=== PATIENT | female | born 1970 | race Caucasian/White ===

== ENCOUNTER 2016-07-17 05:00 | Inpatient (IN) | payer OTHER ==
[~2016-07-17] VITALS: Ht 162.6 cm; Wt 87.5 kg
[2016-07-17] VITALS (10 sets, daily range): BP systolic 92–116; BP diastolic 55–76; PULSE 47–69; RESP 18–22; Ht 162.6 cm; Wt 87.5 kg
[2016-07-17] MEDS ORDERED: FENTAnyl 50 MCG/ML VIAL ONE (07:00)
[2016-07-17] MEDS ORDERED: MIDAZOLAM 1 MG/ML 2 ML INJ ONE (07:00)
[2016-07-17] MEDS ORDERED: NACL 0.9% 3 ML SYG IV SCH ×2 (07:30→09:00)
[2016-07-17] MEDS ORDERED: FAMOTIDINE 20 MG INJ IV SCH (09:00)
[2016-07-17] MEDS ORDERED: LORAZEPAM 2 MG INJ IV PRN (09:00)
[2016-07-17] MEDS ORDERED: hydrALAzine 20 MG INJ IV PRN (09:00)
[2016-07-17] MEDS: SOD CHLORIDE 0.45% 1,000 ML IV SCH ×2 (09:27→17:20)
[2016-07-17] MEDS ORDERED: DEXTROSE 50% 50 ML SYRINGE IV PRN ×2 (09:30)
[2016-07-17] MEDS ORDERED: GLUCOSE GEL 15 GRAM TUBE BUCCAL PRN (09:30)
[2016-07-17] MEDS ORDERED: GLUCAGON 1 MG INJ IM PRN (09:30)
[2016-07-17] MEDS ORDERED: GLUCOSE GEL 15 GRAM TUBE PO PRN ×2 (09:30)
[2016-07-17] MEDS: AZITHROMYCIN 500MG/NS (PMX) 250 ML IVPB SCH (09:52)
--- NOTE | 2016-07-17 10:29 | HP ---
DATE OF ADMISSION: 07/17/2016 TIME OF EVALUATION: 8:15 a.m. REASON FOR ADMISSION: Transferred from another hospital for further evaluation of suspected swallowed foreign body. CONSULTANTS: 1. Dr. Sherie John, Gastroenterology. 2. Dr. Yolis Cope, Cardiology. HISTORY OF PRESENT ILLNESS: This is a 46-year-old obese female with past medical history of type 2 diabetes mellitus, anxiety, depression, asthma, and reported cardiac arrhythmias, for which she is scheduled to have a left heart catheterization on 07/20/2016, who went to the local emergency room because of dysphagia, throat pain and chest fullness and other nonspecific complaints. The patient verbalized that all of these started approximately 2 days ago when she was eating tilapia and she suspected that she swallowed a fish bone and it "got stuck" in her throat. The patient denied any hoarseness. The patient verbalized that she has a history of asthma and she uses inhaled bronchodilators. In other words, she verbalized that this episode has not caused any significant increase in dyspnea. The patient was complaining of nonspecific chest discomfort that goes on and off as per the patient. The patient was also complaining of episodes of palpitations. The patient denied any fevers, chills, nausea, vomiting, abdominal pain, diarrhea or constipation, hematochezia or melena. She denied any dysuria or hematuria. The patient is a poor historian. The patient was unable to provide a list of her home medications. The patient verbalized that she takes "a lot of medications" at home. The patient was initially evaluated at [facility] emergency room where she underwent a chest x-ray that was negative for any acute intrathoracic findings. The patient had a 12-lead EKG done at the ER that shows sinus rhythm with occasional premature ventricular complexes. The patient had a Rapid Strep A screen done which was negative. The patient had no leukocytosis. The patient's initial troponin was less than 0.01. The patient was started on clindamycin for any suspected tonsillitis since the patient is ALLERGIC TO PENICILLIN. The patient was transferred to [facility] because of insurance reasons. PAST MEDICAL HISTORY: Anxiety, depression, type 2 diabetes mellitus, asthma. PAST SURGICAL HISTORY: Denies. HOME MEDICATIONS: A list of the patient's home medications is not available at this time. ALLERGIES: PENICILLIN. PENICILLIN CAUSES ANAPHYLAXIS. SOCIAL HISTORY: The patient lives at home with her family. Denies any use of tobacco, alcohol or illicit drugs. FAMILY HISTORY: Positive for heart disease, diabetes and hypertension. REVIEW OF SYSTEMS: A 12-point review of systems were obtained and review of systems were negative other than what is mentioned in history of present illness. PHYSICAL EXAMINATION: VITAL SIGNS: Temperature 98.2, pulse is 64, respiratory rate 19, blood pressure 103/73, oxygen saturation 95% on low flow O2. GENERAL: This is an obese female lying in bed in no apparent distress. HEENT: Head normocephalic and atraumatic. Eyes: Anicteric sclerae. Conjunctivae clear. ENT: Nasal septum is midline. Oral mucosa is dry. Tongue midline. Uvula midline. Enlarged inflamed tonsils bilaterally. NECK: Short and obese. RESPIRATORY: Bilaterally diminished breath sounds. No adventitious breath sounds. No use of accessory muscles of respiration. CARDIAC: Regular rate and rhythm. Sinus bradycardia. GASTROINTESTINAL: Abdomen soft, nontender and nondistended. Bowel sounds positive in all 4 quadrants. GENITOURINARY: Deferred. EXTREMITIES: No cyanosis, no clubbing, no edema. Peripheral pulses are palpable. NEUROLOGIC: The patient is awake, alert and oriented. Cranial nerves are grossly intact. LABORATORY AND DIAGNOSTIC DATA: From [facility]: 1. A 12-lead EKG is sinus rhythm with occasional premature ventricular complexes. 2. Rapid Strep screen negative. 3. Troponin I less than 0.01. 4. CBC: WBC 11.0, hemoglobin 12.3, hematocrit 36.9, platelet count 328. 5. BMP: Sodium 141, potassium 4.0, chloride 100, carbon dioxide 25, anion gap 13, BUN 16, creatinine 0.6, glucose 107, calcium 9.5. 6. Chest x-ray. Upper limit of normal size cardiac silhouette. Otherwise, unremarkable mediastinal contours. No evidence of focal consolidation, pleural effusion, pulmonary vascular congestion or pneumothorax. No acute osseous abnormality. IMPRESSION: This is a 46-year-old female who went to the local emergency room because of dysphagia and odynophagia secondary to a swallowed fish bone, who will be admitted to [facility] for further evaluation. ASSESSMENT AND PLAN: 1. Suspected swallowed foreign body. A Gastroenterology consult will be obtained. The patient will be provided with adequate pain control. The patient will be maintained on clear liquids if the patient is able to swallow. The patient will be started on IV fluids. 2. Tonsillitis. The patient will be started on appropriate antibiotics. 3. Diabetes mellitus. The patient will be started on sliding scale insulin. A hemoglobin A1c will be obtained to evaluate the blood glucose control over the past few weeks. 4. Cardiac arrhythmias. The patient was noticed to have premature ventricular complexes as well as trigeminy. The patient will be monitored on telemetry floor. Serial troponins will be done to evaluate for any underlying acute coronary syndrome. Cardiology consult will be obtained. 5. Anxiety. The patient will be started on p.r.n. anxiolytics. The patient's home anxiolytics will be resumed once a list of the patient's home medications is available. 6. Asthma. The patient has a history of asthma. There is no evidence of any acute exacerbation. The patient will be started on inhaled bronchodilators. 7. Depression. The patient has history of depression. The patient's antidepressants will be resumed. Plan. The patient will be admitted to inpatient telemetry floor. The patient will be started on DVT prophylaxis and gastrointestinal prophylaxis. The patient will remain a FULL CODE. Activities will be as tolerated. The patient will be started on a clear liquid diet. A gastroenterology consult was already called on this patient. A cardiology consult will be obtained. The rest of the patient's management will be based on the clinical course, the results of diagnostic studies, and inputs from consultants. Based on the patient's clinical presentation, she most probably requires at least 1 midnight's stay for further management and evaluation of her clinical presentation. The case and management of this patient was fully discussed with Dr. Bates. Approximately 60 minutes was spent on the history and physical on this patient. JOSESITO BATES MD, AM/CHRISTIANO Conf#: [id number] DID#: [id number] MTDD
[2016-07-17] MEDS: morphine 2 MG INJ IV PRN ×2 (10:36→10:37)
[2016-07-17 10:56] LABS: INR 0.97; PROTIME 12.9 Sec (12.2-14.2)
[2016-07-17 10:57] LABS: PARTIAL THROMBOPLASTIN TIME 31.6 Sec (25.0-35.0)
[2016-07-17 10:59] LABS: CHOL/HDL RATIO 3.5 RATIO
[2016-07-17] MEDS ORDERED: ALBUTEROL/IPRATROPIUM (NEB) 3 ML AMP HHN PRN (11:00)
[2016-07-17] MEDS ORDERED: VENL75CA89 PO (11:05)
[2016-07-17] MEDS ORDERED: OMEP40CA6 PO (11:05)
[2016-07-17] MEDS ORDERED: DILT120C77 PO (11:05)
[2016-07-17] MEDS ORDERED: METF-730 PO (11:05)
[2016-07-17] MEDS ORDERED: CETI-240 PO (11:05)
[2016-07-17] MEDS ORDERED: CETI5SOL PO (11:05)
[2016-07-17] MEDS ORDERED: GABA300S PO (11:05)
[2016-07-17] MEDS ORDERED: FLUT9.9S NASAL (11:05)
[2016-07-17] MEDS ORDERED: BUSP10TA2 PO (11:05)
[2016-07-17] MEDS ORDERED: IBUP-1542 PO (11:05)
[2016-07-17 11:20] LABS: THYROID STIMULATING HORMONE 1.62 MIU/L (0.465-4.680)
[2016-07-17] MEDS: INSULIN ASPART [NOVOLOG] 3 ML PEN SC SCH ×3 (11:27→21:00)
--- NOTE | 2016-07-17 13:25 | CONS ---
Date/Time of Note Date/Time of Note DATE: 07/17/16 TIME: 13:16 Assessment/Plan Assessment/Plan Additional Assessment/Plan Assessment : Dysphagia Rule out foreign body posterior pharynx or upper esophagus History of fishbone in posterior pharynx or upper esophagus Atypical chest pain Obesity Plan: EGD possible foreign body removal. Consultation Date/Type/Reason Admit Date/Time Jul 17, 2016 at 05:00 Date of Consultation: Jul 17, 2016 Reason for Consultation * Dysphagia Hx of Present Illness 46-year-old female transferred from [facility] where she presented complaining of dysphagia and sore throat. The patient states that she was eating tilapia fish 2 days prior and felt that fishbone got stuck in one her tonsils, since then she has experienced significant difficulty swallowing and sore throat. Evaluation at [facility] included a chest x-ray which was negative and the patient was then transferred to [facility] due to insurance coverage. At the present time the patient is still complaining of difficulty swallowing and discomfort in the area of the pharynx as well as the upper esophagus. The patient denies any previous episodes of dysphagia or other gastrointestinal symptomatology. The patient will be evaluated endoscopically attempting to visualize the pharynx although the reliability of this type of examination for that area is limited, we will however be able to evaluate the esophagus and the remainder of the epigastric intestinal tract in detail. The procedure was explained to the patient and her daughter in detail including risks, benefits and alternatives. The patient is agreeable to proceed and signed informed consent. Constitutional: improved, no complaints Eyes: no complaints ENT: dysphagia, sore throat Respiratory: no complaints Cardiovascular: no complaints Gastrointestinal: no complaints Genitourinary: no complaints Musculoskeletal: no complaints Skin: no complaints Neurologic: no complaints Endocrine: no complaints Lymphatic: no complaints Psychological: nl mood/affect, no complaints Immunologic: no complaints Past Medical History Medical History: hypertension Past Surgical History Past Surgical Hx: no surgical history Family History Significant Family History: no pertinent family hx Social History Smoking Status: Never smoker Drug Use: none Exam/Review of Systems Vital Signs Vitals Vital Signs Date Time Temp Pulse Resp B/P Pulse Ox O2 Delivery O2 Flow Rate FiO2 07/17/16 12:11 50 07/17/16 12:07 98.5 18 100/58 95 07/17/16 06:01 Nasal Cannula 2.0 Exam Constitutional: alert, obese, oriented, well developed Head: atraumatic, normocephalic Eyes: EOMI, PERRL, nl conjunctiva, nl lids, nl sclera ENMT: mucosa pink and moist, nl external ears & nose, nl lips & teeth, nl nasal mucosa & septum, other (Enlarged, erythematous tonsils) Neck: non-tender, supple Respiratory: clear to auscultation, normal air movement Cardiovascular: nl pulses, regular rate and rhythm Gastrointestinal: nl liver, spleen, non-tender, soft Musculoskeletal: nl extremities to inspection Extremities: normal pulses Skin: nl turgor, No rash or lesions Lymph: nl lymph nodes Results Results 24 hrs Laboratory Tests Test 07/17/16 10:12 07/17/16 10:40 Activated Partial Thromboplast Time 31.6 Cholesterol Level 138 Cholesterol/HDL Ratio 3.5 Free Thyroxine 0.84 HDL Cholesterol 39 Hemoglobin A1c 6.9 H INR International Normalized Ratio 0.97 LDL Cholesterol, Calculated 77 Prothrombin Time 12.9 Prothrombin Time Ratio 1.0 Thyroid Stimulating Hormone (TSH) 1.620 Triglycerides Level 112 Vitamin D 1,25-Dihydroxy 19.9 L Bedside Glucose 114 Medications Medications Current Medications Sodium Chloride (1/2 NS) 1,000 ml @ 100 mls/hr Q10H IV Last administered on 09:27; Admin Dose 100 MLS/HR; Start 07/17/16 at 07:20 Ondansetron HCl (Zofran Inj) 4 mg Q6H PRN IV NAUSEA AND/OR VOMITING; Start 04/22 at 07:30 Morphine Sulfate 2 mg 2 mg Q4H PRN IV SEVERE PAIN LEVEL 7-10 Last administered on 07/17/16 10:37; Admin Dose 2 MG; Start 07/17/16 at 07:30 Azithromycin (Zithromax 500mg/ NS (Pmx)) 250 ml @ 250 mls/hr Q24H IVPB Last administered on 07/17/16 09:52; Admin Dose 250 MLS/HR; Start 07/17/16 at 09:00 Acetaminophen (Tylenol Tab) 650 mg Q6H PRN PO PAIN LEVEL 1-3 OR FEVER; Start at 09:00 Zolpidem Tartrate (Ambien) 5 mg QHS PRN PO INSOMNIA; Start 07/17/16 at 09:00 Famotidine (Pepcid Iv) 20 mg Q12 IV Last administered on 07/17/16t 09:51; Admin Dose 20 MG; Start 07/17/16 at 09:00 Hydralazine HCl (Apresoline) 10 mg Q6H PRN IV SBP>160; Start 07/17/16 at 09:00 Miscellaneous Information (* Miscellaneous Pharmacy Order) HYPOGLYCEMIA PROTOCOL w... ONCE ONCE XX ; Start 07/17/16 at 09:00; Stop 07/17/16 at 09:01 Miscellaneous Information (* Miscellaneous Pharmacy Order) Discontinue Glyburide , Glipizide,... ONCE ONCE XX ; Start 07/17/16 at 09:00; Stop 07/17/16 at 09:01 Miscellaneous Information (* Miscellaneous Pharmacy Order) Discontinue all previ... ONCE ONCE XX ; Start 07/17/16 at 09:00; Stop 07/17/16 at 09:01 Diagnostic Test (Pha) (Accucheck) 1 ea 02 XX ; Start 07/18/16 at 02:00 Lorazepam (Ativan) 1 mg Q8H PRN IV Anxiety; Start 07/17/16 at 09:00 Miscellaneous Information 1 ea NOTE XX ; Start 07/17/16 at 09:30 Glucose (Glutose) 15 gm Q15M PRN PO DECREASED GLUCOSE; Start 07/17/16 at 09:30 Glucose (Glutose) 22.5 gm Q15M PRN PO DECREASED GLUCOSE; Start 07/17/16 at 09: 30 Dextrose (D50w Syringe) 25 ml Q15M PRN IV DECREASED GLUCOSE; Start 07/17/16 at 09:30 Dextrose (D50w Syringe) 50 ml Q15M PRN IV DECREASED GLUCOSE; Start 07/17/16 at 09:30 Glucagon (Glucagen) 1 mg Q15M PRN IM DECREASED GLUCOSE; Start 07/17/16 at 09:30 Glucose (Glutose) 15 gm Q15M PRN BUCCAL DECREASED GLUCOSE; Start 07/17/16 at 09 :30 DOUGLAS ESPARZA MD Jul 17, 2016 13:25
[2016-07-17 13:45] LABS: ADD UMIC YES; URINE BILIRUBIN (Dip) NEGATIVE (NEGATIVE); URINE BLOOD (Dip) 1+ (NEGATIVE); URINE COLOR LT. YELLOW (YELLOW); URINE GLUCOSE (Dip) NEGATIVE (NEGATIVE); URINE KETONES (Dip) NEGATIVE (NEGATIVE); URINE LEUKOCYTE ESTERASE (Dip) TRACE (NEGATIVE); URINE NITRITE (Dip) NEGATIVE (NEGATIVE); URINE TOTAL PROTEIN (Dip) NEGATIVE (NEGATIVE); URINE UROBILINOGEN (Dip) 0.2 E.U./dL (0.1-1.0)
--- NOTE | 2016-07-17 13:46 | CONS ---
Date/Time of Note Date/Time of Note DATE: 07/17/16 TIME: 13:40 Assessment/Plan Assessment/Plan Additional Assessment/Plan 1. Suspected foreign body in the throat. Gastroenterology consult will be obtained. The patient will be provided with adequate pain control. The patient will be maintained on clear liquids if the patient is able to swallow. The patient will be started on IV fluids. 2. Possible tonsillitis. The patient will be started on appropriate antibiotics. 3. Diabetes mellitus. 4. PVC - The patient with intermittetn pvcs with bigeminy and trigeminy. Keep magneisum and potassium therapeutic. 6. Asthma. The patient has a history of asthma. There is no evidence of any acute exacerbation. The patient will 5. Bardycardia - no pauses and no symptoms Consultation Date/Type/Reason Admit Date/Time Jul 17, 2016 at 05:00 Hx of Present Illness This is a 46-year-old obese female with past medical history of type 2 diabetes mellitus, anxiety, depression, and reported cardiac arrhythmias, for which she is scheduled to have a left heart catheterization on 07/20/2016, who went to the local emergency room because of dysphagia, throat pain and chest fullness and other nonspecific complaints. The patient verbalized that all of these started approximately 2 days ago when she was eating tilapia and she suspected that she swallowed a fish bone and it got stuck in her throat. The patient denied any hoarseness. The patient verbalized that she has a history of asthma and she uses inhaled bronchodilators. In other words, she verbalized that this episode has not caused any significant increase in dyspnea. The patient was complaining of nonspecific chest discomfort that goes on and off as per the patient. The patient was also complaining of episodes of palpitations. The patient denied any fevers, chills, nausea, vomiting, abdominal pain, diarrhea or constipation, hematochezia or melena. She denied any dysuria, hematuria. The patient is a poor historian. The patient was unable to provide a list of her home medications. The patient verbalized that she takes "a lot of medications" at home. The patient was initially evaluated at [facility] emergency room where she underwent a chest x-ray that was negative for any acute intrathoracic findings. The patient had a 12-lead EKG done at the ER that shows sinus rhythm with occasional premature ventricular complexes. The patient had a Rapid Strep A screen done which was negative. The patient had no leukocytosis. The patient's initial troponin was less than 0.01. The patient was started on clindamycin for any suspected tonsillitis since the patient is ALLERGIC TO PENICILLIN. The patient was transferred to [facility] because of insurance reasons. She was found to be bradycaridic with pvcs though she is aymptomatic and doing well overall at this time Constitutional: improved, no complaints Eyes: no complaints ENT: dysphagia, sore throat Respiratory: no complaints Cardiovascular: no complaints Gastrointestinal: no complaints Genitourinary: no complaints Musculoskeletal: no complaints Skin: no complaints Neurologic: no complaints Endocrine: no complaints Lymphatic: no complaints Psychological: nl mood/affect, no complaints Immunologic: no complaints Past Medical History Medical History: hypertension Past Surgical History Past Surgical Hx: no surgical history Social History Smoking Status: Never smoker Drug Use: none Exam/Review of Systems Vital Signs Vitals Vital Signs Date Time Temp Pulse Resp B/P Pulse Ox O2 Delivery O2 Flow Rate FiO2 07/17/16 12:11 50 07/17/16 12:07 98.5 18 100/58 95 07/17/16 06:01 Nasal Cannula 2.0 Results Results 24 hrs Laboratory Tests Test 07/17/16 10:12 07/17/16 10:40 07/17/16 12:30 Activated Partial Thromboplast Time 31.6 Cholesterol Level 138 Cholesterol/HDL Ratio 3.5 Free Thyroxine 0.84 HDL Cholesterol 39 Hemoglobin A1c 6.9 H INR International Normalized Ratio 0.97 LDL Cholesterol, Calculated 77 Prothrombin Time 12.9 Prothrombin Time Ratio 1.0 Thyroid Stimulating Hormone (TSH) 1.620 Triglycerides Level 112 Vitamin D 1,25-Dihydroxy 19.9 L Bedside Glucose 114 Troponin I < 0.012 Medications Medications Current Medications Sodium Chloride (1/2 NS) 1,000 ml @ 100 mls/hr Q10H IV Last administered on 09:27; Admin Dose 100 MLS/HR; Start 07/17/16 at 07:20 Ondansetron HCl (Zofran Inj) 4 mg Q6H PRN IV NAUSEA AND/OR VOMITING; Start 04/22 at 07:30 Morphine Sulfate 2 mg 2 mg Q4H PRN IV SEVERE PAIN LEVEL 7-10 Last administered on 07/17/16 10:37; Admin Dose 2 MG; Start 07/17/16 at 07:30 Azithromycin (Zithromax 500mg/ NS (Pmx)) 250 ml @ 250 mls/hr Q24H IVPB Last administered on 07/17/16 09:52; Admin Dose 250 MLS/HR; Start 07/17/16 at 09:00 Acetaminophen (Tylenol Tab) 650 mg Q6H PRN PO PAIN LEVEL 1-3 OR FEVER; Start at 09:00 Zolpidem Tartrate (Ambien) 5 mg QHS PRN PO INSOMNIA; Start 07/17/16 at 09:00 Hydralazine HCl (Apresoline) 10 mg Q6H PRN IV SBP>160; Start 07/17/16 at 09:00 Miscellaneous Information (* Miscellaneous Pharmacy Order) HYPOGLYCEMIA PROTOCOL w... ONCE ONCE XX ; Start 07/17/16 at 09:00; Stop 07/17/16 at 09:01 Miscellaneous Information (* Miscellaneous Pharmacy Order) Discontinue Glyburide , Glipizide,... ONCE ONCE XX ; Start 07/17/16 at 09:00; Stop 07/17/16 at 09:01 Miscellaneous Information (* Miscellaneous Pharmacy Order) Discontinue all previ... ONCE ONCE XX ; Start 07/17/16 at 09:00; Stop 07/17/16 at 09:01 Diagnostic Test (Pha) (Accucheck) 1 ea 02 XX ; Start 07/18/16 at 02:00 Lorazepam (Ativan) 1 mg Q8H PRN IV Anxiety; Start 07/17/16 at 09:00 Miscellaneous Information 1 ea NOTE XX ; Start 07/17/16 at 09:30 Glucose (Glutose) 15 gm Q15M PRN PO DECREASED GLUCOSE; Start 07/17/16 at 09:30 Glucose (Glutose) 22.5 gm Q15M PRN PO DECREASED GLUCOSE; Start 07/17/16 at 09: 30 Dextrose (D50w Syringe) 25 ml Q15M PRN IV DECREASED GLUCOSE; Start 07/17/16 at 09:30 Dextrose (D50w Syringe) 50 ml Q15M PRN IV DECREASED GLUCOSE; Start 07/17/16 at 09:30 Glucagon (Glucagen) 1 mg Q15M PRN IM DECREASED GLUCOSE; Start 07/17/16 at 09:30 Glucose (Glutose) 15 gm Q15M PRN BUCCAL DECREASED GLUCOSE; Start 07/17/16 at 09 :30 Pantoprazole (Protonix Iv) 40 mg DAILY@06 IV ; Start 07/18/16 at 06:00 JAKE CANNON MD Jul 17, 2016 13:46
[2016-07-17 14:04] LABS: BACTERIA,URINE FEW; SQUAMOUS EPITHELIAL CELL,UR MODERATE; URINE RBCS 0-2 /HPF (0)
[2016-07-17 14:08] LABS: BARBITURATES Negative (NEGATIVE); BENZODIAZEPINES Negative (NEGATIVE); CANNABINOIDS Negative (NEGATIVE); COCAINE Negative (NEGATIVE); OPIATES Positive (NEGATIVE)
--- NOTE | 2016-07-17 14:43 | RADRPT ---
PROCEDURE: CT soft tissue neck without contrast CLINICAL INDICATION: Evaluate for swallowed foreign body, fish bone TECHNIQUE: Transaxial images were made through the neck on a multi-slice scanner without intraveno us contrast administration. Coronal and sagittal images were subsequently reformatted. One or more of the following dose reduction techniques were used: - Automated exposure control. - Adjustment of the mA and/or kV according to patient size. - Use of iterative reconstruction technique. Radiation dose: CTDIvol = 9.99 mGy; DLP = 275.41 mGy-cm. COMPARISON: None FINDINGS: The incompletely visualized paranasal sinuses and mastoid air cells are well-aerated. The nasal and oropharynx appear unremarkable. The epiglottis is not edematous. The larynx and trachea appear un remarkable. The parapharyngeal spaces and the tongue base appear unremarkable. The tonsils are prom inent with no mass or abscess evident. The parotid, submandibular glands and the thyroid appear unr emarkable. No mediastinal mass is evident. There is a 7 mm in short diameter submental node just t o the right of midline. Bilateral anterior submandibular nodes are evident approximately 9 mm in sh ort diameter each. Subsegmental atelectasis is seen within the posterior lung valdivia bilaterally. There is straightening of the normal lordotic curvature to the cervical spine and there are degenera tive disk and endplate changes at C4-5, C5-6 and C6-C7 associated with mild stenosis to the central canal and C5-6 and C6-C7. No radiopaque foreign body is identified. IMPRESSION: 1. No radiopaque foreign body is identified. 2. Straightening of the normal lordotic curvature to the cervical spine with degenerative disk and endplate changes noted at C4-C5, C5-C6 and C6-C7 with mild stenosis to the central canal at C5-C6 an d C6-C7. 3. Prominent tonsils with no mass or abscess evident. 4. 7 mm in short diameter submental node and 9 mm in short diameter bilateral anterior sub mandibul ar nodes are evident. 5. Otherwise, unremarkable noncontrast enhanced CT scan of the soft tissues of the neck. R Rashaun Physician Date Time Electronically viewed and signed by Rikki Rodney Physician on 07/17/2016 14:43 RH/
--- NOTE | 2016-07-17 14:53 | RADRPT ---
PROCEDURE: CT Chest Without Contrast CLINICAL INDICATION: Evaluate for swallowed foreign body, fish bone. TECHNIQUE: Volumetric acquisition of the thorax was performed without the intravenous administrati on of contrast. Radiation Dose: CTDI = 16.47 mGy; DLP = 624.40 mGy-cm. COMPARISON: None. FINDINGS: Lung valdivia: Subsegmental atelectasis is seen within the posterior medial right upper lobe as well a s the posterior medial right lower lobe. Discoid atelectatic changes seen within the lateral left u pper lobe and within the posterior left lower lobe. No alveolar infiltrate or nodule is identified. The pleural spaces: No effusion or pneumothorax is identified. Lymph nodes: No pathologically enlarged nodes are evident. Cardiovascular structures: The heart is normal in size. The aorta appears normal in caliber. Thyroid: Unremarkable. Superior abdominal structures: The liver appears fatty infiltrated. Soft tissues: No radiopaque foreign body is evident. Osseous structures: Degenerative spine changes are seen diffusely but most extensive within the infe rior cervical region. A 1.2 cm area of sclerosis is seen within the right humeral head which likely represents a bone island. IMPRESSION: 1. No radiopaque foreign body is evident. 2. Subsegmental atelectasis is seen within the posterior medial right upper lobe as well as the pos terior medial right lower lobe with discoid atelectatic change seen in the lateral left upper lobe a nd the posterior left lower lobe. No alveolar infiltrate, effusion, or pneumothorax is evident. 3. Fatty infiltrated liver. 4. Degenerative spine changes most extensive within the inferior cervical region. 5. 1.2 cm area of increased sclerosis seen in the right humeral head probably representing a bone i sland. Physician Soni Date Time Electronically viewed and signed by Physician Soni on 07/17/2016 14:53 /
--- NOTE | 2016-07-17 19:14 | CONS ---
Date/Time of Note Date/Time of Note DATE: 07/17/16 TIME: 18:26 Assessment/Plan Assessment/Plan Chief Complaint/Hosp Course 46 yo obese (BMI >33.+) Female admit with: 1. Acute pharyngitis w/painful bilateral tonsillitis w/reported hx of dysphagia -> Denies odynophagia * Taking PO food without dysphagia today * History of fishbone in posterior pharynx or upper esophagus after eating Talapia * Anxiety playing a role in her perception of dysphagia - she has been "scared to swallow" believing fishbones poking and infecting her tonsils. 2. POD #0 07/17/16: EGD today: NO foreign body, (+)pharyngitis/bilateral tonsillitis/ mild gastritis-distal esophagitis 3. Atypical chest pain => mixed etiology DDx Gastritis/distal esophagitis, (+) Anxiety w/PVCs * CARDS work planned left heart catheterization on 07/20/2016, 4. Cardiac arrhythmia Bradycardia - no pauses and no symptoms w/ premature ventricular contractions -> CARDS on the case 5. COPD Asthma = stable without evidence of exacerbation - no wheezing * CT Chest 07/17/16 with ATX: Subsegmental atelectasis is seen within the posterior medial right upper lobe as well as the posterior medial right lower lobe with discoid atelectatic change seen in the lateral left upper lobe and the posterior left lower lobe. 6. 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 Psych Dx: Anxiety/Depression disorder on Buspar ABX ALLERGIES: PCN CURRENT ABX: Azithromycin s/p Clindamycin ID RECOMMENDATIONS 1. Per notes (-)Strep A per rapid test @ [facility]. 2. Patient believes the fishbones were poking her tonsils and they became infected, she believes this because she saw exudate on her tonsils the same day she ate the Talapia and pulled out fishbones from her mouth. On exam there is no exudate w/mild erythema bilateral tonsils and mild white tongue coating. * It is possible she has viral syndrome etiology to her acute pharyngitis/ bilateral tonsillitis 3. Oral tonsil swab for bacterial C&S obtained 4. Will add Diflucan for concern yeast 5. Continue Azith 6. Await GI Bx r/o H. Pylori 7. Anxiety appears to be active, ruminating about trauma and concern fishbones, afraid to swallow * Thank you, report called to Dr. Merchant who concurs. . Problems: Consultation Date/Type/Reason Admit Date/Time Jul 17, 2016 at 05:00 Date of Consultation: Jul 17, 2016 Type of Consultation: INFECTIOUS DISEASES Reason for Consultation ANTIBIOTIC MANAGEMENT Referring Provider: JOSESITO CASTLE NP Hx of Present Illness 46 yo F admitted to [facility] for acute pharyngitis associated w/odynophagia occurred about 2 days after eating Talapia with apparent retained fishbone in her tonsil/throat which was removed. Strep A rapid test was negative and she was stared on Clindamycin ABX coverage for concern bacterial etiology to acute pharyngitis at [facility], no on Azithromycin IV per ED/Hospitalist. No fevers recorded. She had episodes of chest pain in the setting of trigeminy and bradycardia and is planned for full cardiac work up with left heart cath pending 07/20/16. REASON FOR ADMISSION: Transferred from another hospital due to insurance reasons and for further evaluation of suspected swallowed foreign body. * s/p EGD today with Dr. Will with preliminary handwritten procedure note reporting: "Pharyngitis w/Tonsillitis, NO FB noted. Mild distal esophagitis, mild gastritis, r/o H. Pylori Bx'd. PLAN: PPI w/CT Neck ?ENT Eval. CT CHEST 07/17/16 IMPRESSION: 1. No radiopaque foreign body is evident. 2. Subsegmental atelectasis is seen within the posterior medial right upper lobe as well as the posterior medial right lower lobe with discoid atelectatic change seen in the lateral left upper lobe and the posterior left lower lobe. No alveolar infiltrate, effusion, or pneumothorax is evident. 3. Fatty infiltrated liver. 4. Degenerative spine changes most extensive within the inferior cervical region. 5. 1.2 cm area of increased sclerosis seen in the right humeral head probably representing a bone island. CT SOFT TISSUE NECK 07/17/16 IMPRESSION: 1. No radiopaque foreign body is identified. 2. Straightening of the normal lordotic curvature to the cervical spine with degenerative disk and endplate changes noted at C4-C5, C5-C6 and C6-C7 with mild stenosis to the central canal at C5-C6 and C6-C7. 3. Prominent tonsils with no mass or abscess evident. 4. 7 mm in short diameter submental node and 9 mm in short diameter bilateral anterior sub mandibular nodes are evident. 5. Otherwise, unremarkable noncontrast enhanced CT scan of the soft tissues of the neck. Constitutional: improved, other (s/p EGD -- Awake), No chills, No disoriented, No febrile, No requiring O2 Eyes: no complaints ENT: dysphagia (Improved - no pain with swallowing, just "scared" ), sore throat Respiratory: no complaints, No cough, No pleuritic pain, No shortness of breath, No wheezing Cardiovascular: no complaints Gastrointestinal: no complaints Genitourinary: no complaints Musculoskeletal: no complaints Skin: no complaints Neurologic: no complaints Endocrine: no complaints Lymphatic: no complaints Psychological: anxiety, no complaints Immunologic: no complaints Past Medical History Obesity DMT2 w/peripheral neuropathy HTN Psych Dx: Anxiety/Depression Medical History: hypertension Past Surgical History H/O x2 Family History Significant Family History: no pertinent family hx Social History Smoking Status: Never smoker Drug Use: none Exam/Review of Systems Vital Signs Vitals Vital Signs Date Time Temp Pulse Resp B/P Pulse Ox O2 Delivery O2 Flow Rate FiO2 07/17/16 17:45 2.0 07/17/16 16:15 47 07/17/16 16:10 97.8 18 99/65 100 07/17/16 06:01 Nasal Cannula Exam Constitutional: alert, obese, oriented, well developed Psych: anxiety, other (Rapid speech - "scared to eat fish" (+)RUminations about fishbones poking her tonsils causing infection. ) Head: atraumatic, normocephalic Eyes: nl conjunctiva, nl lids, nl sclera ENMT: mucosa pink and moist, nl external ears & nose, nl lips & teeth, other ( bilateral tonsils appear enlarged with mild erythema, no exudates bilaterally, no petichiae, mild white tongue coating. Tonsils not particularly painful when swab culture obtained) Neck: other (WNL), supple Respiratory: clear to auscultation, normal air movement Cardiovascular: nl pulses, regular rate and rhythm Gastrointestinal: other (Obese ), soft Genitourinary - Female: other (Deferred) Extremities: other (No cyanosis, clubbing, no edema ) Neurological: ASSURANCE SOURCING MANAGER II-XII intact Skin: nl turgor, No ecchymosis, No laceration, No rash or lesions Lymph: enlarged Results Results 24 hrs Laboratory Tests Test 07/17/16 10:12 07/17/16 10:40 07/17/16 12:30 07/17/16 17:23 Activated Partial Thromboplast Time 31.6 Cholesterol Level 138 Cholesterol/HDL Ratio 3.5 Free Thyroxine 0.84 HDL Cholesterol 39 Hemoglobin A1c 6.9 H INR International Normalized Ratio 0.97 LDL Cholesterol, Calculated 77 Prothrombin Time 12.9 Prothrombin Time Ratio 1.0 Thyroid Stimulating Hormone (TSH) 1.620 Triglycerides Level 112 Vitamin D 1,25-Dihydroxy 19.9 L Bedside Glucose 114 77 Troponin I < 0.012 Urine Amphetamines Screen Negative Urine Bacteria FEW Urine Barbiturates Negative Urine Benzodiazepines Screen Negative Urine Bilirubin NEGATIVE Urine Cannabinoids Negative Urine Clarity HAZY Urine Cocaine Screen Negative Urine Color LT. YELLOW Urine Glucose NEGATIVE Urine Hemoglobin 1+ H Urine Ketones NEGATIVE Urine Leukocyte Esterase TRACE H Urine Microscopic RBC 0-2 Urine Microscopic WBC 5-10 Urine Nitrite NEGATIVE Urine Opiates Screen Positive Urine Test NEGATIVE Urine Specific [place] 1.025 Urine Squamous Epithelial Cells MODERATE Urine Total Protein NEGATIVE Urine Urobilinogen 0.2 E.U./dL Urine pH 5.0 Medications Medications Current Medications Sodium Chloride (1/2 NS) 1,000 ml @ 100 mls/hr Q10H IV Last administered on t 09:27; Admin Dose 100 MLS/HR; Start 07/17/16 at 07:20 Ondansetron HCl (Zofran Inj) 4 mg Q6H PRN IV NAUSEA AND/OR VOMITING; Start 04/22 at 07:30 Morphine Sulfate 2 mg 2 mg Q4H PRN IV SEVERE PAIN LEVEL 7-10 Last administered on 07/17/16 10:37; Admin Dose 2 MG; Start 07/17/16 at 07:30 Azithromycin (Zithromax 500mg/ NS (Pmx)) 250 ml @ 250 mls/hr Q24H IVPB Last administered on 07/17/16 09:52; Admin Dose 250 MLS/HR; Start 07/17/16 at 09:00 Acetaminophen (Tylenol Tab) 650 mg Q6H PRN PO PAIN LEVEL 1-3 OR FEVER; Start at 09:00 Zolpidem Tartrate (Ambien) 5 mg QHS PRN PO INSOMNIA; Start 07/17/16 at 09:00 Hydralazine HCl (Apresoline) 10 mg Q6H PRN IV SBP>160; Start 07/17/16 at 09:00 Miscellaneous Information (* Miscellaneous Pharmacy Order) HYPOGLYCEMIA PROTOCOL w... ONCE ONCE XX ; Start 07/17/16 at 09:00; Stop 07/17/16 at 09:01 Miscellaneous Information (* Miscellaneous Pharmacy Order) Discontinue Glyburide , Glipizide,... ONCE ONCE XX ; Start 07/17/16 at 09:00; Stop 07/17/16 at 09:01 Miscellaneous Information (* Miscellaneous Pharmacy Order) Discontinue all previ... ONCE ONCE XX ; Start 07/17/16 at 09:00; Stop 07/17/16 at 09:01 Diagnostic Test (Pha) (Accucheck) 1 ea 02 XX ; Start 07/18/16 at 02:00 Lorazepam (Ativan) 1 mg Q8H PRN IV Anxiety; Start 07/17/16 at 09:00 Miscellaneous Information 1 ea NOTE XX ; Start 07/17/16 at 09:30 Glucose (Glutose) 15 gm Q15M PRN PO DECREASED GLUCOSE; Start 07/17/16 at 09:30 Glucose (Glutose) 22.5 gm Q15M PRN PO DECREASED GLUCOSE; Start 07/17/16 at 09: 30 Dextrose (D50w Syringe) 25 ml Q15M PRN IV DECREASED GLUCOSE; Start 07/17/16 at 09:30 Dextrose (D50w Syringe) 50 ml Q15M PRN IV DECREASED GLUCOSE; Start 07/17/16 at 09:30 Glucagon (Glucagen) 1 mg Q15M PRN IM DECREASED GLUCOSE; Start 07/17/16 at 09:30 Glucose (Glutose) 15 gm Q15M PRN BUCCAL DECREASED GLUCOSE; Start 07/17/16 at 09 :30 Pantoprazole (Protonix Iv) 40 mg DAILY@06 IV ; Start 07/18/16 at 06:00 Buspirone HCl (Buspar) 10 mg DAILY PO ; Start 07/18/16 at 09:00 Diltiazem HCl (Cardizem Cd) 120 mg DAILY PO ; Start 07/18/16 at 09:00 Gabapentin (Neurontin) 300 mg TID PO ; Start 07/17/16 at 21:00 Cholecalciferol (Vitamin D) 1,000 unit DAILY PO ; Start 07/18/16 at 09:00 LLUVIA FREITAS NP Jul 17, 2016 18:38
[2016-07-17] MEDS: FLUCONAZOLE 100 MG TAB PO SCH (21:17)
[2016-07-17] MEDS: GABAPENTIN 300 MG CAP PO SCH (21:17)
[2016-07-18] VITALS (17 sets, daily range): BP systolic 101–117; BP diastolic 54–75; PULSE 44–111; RESP 18–19
[2016-07-18] MEDS: SOD CHLORIDE 0.45% 1,000 ML IV SCH ×3 (01:39→23:20)
[2016-07-18] MEDS: ONDANSETRON 4 MG INJ IV PRN (01:39)
[2016-07-18] MEDS: ACCUCHECK XX SCH (01:47)
[2016-07-18] MEDS: PANTOPRAZOLE 40 MG INJ IV SCH (06:14)
[2016-07-18] MEDS: INSULIN ASPART [NOVOLOG] 3 ML PEN SC SCH ×4 (08:00→20:49)
[2016-07-18 08:28] LABS: BASOPHILS % 0.4 % (0.0-2.0); EOSINOPHILS # 0.2 10^3/ul (0.0-0.5); EOSINOPHILS % 2.1 % (0.0-7.0); HEMATOCRIT 35.5 % (37.0-47.0); HEMOGLOBIN 12.1 g/dl (12.0-16.0); LYMPHOCYTES # 2.9 10^3/ul (0.8-2.9); LYMPHOCYTES % 29.1 % (15.0-51.0); MEAN CORPUSCULAR HEMOGLOBIN 29.9 pg (29.0-33.0); MEAN CORPUSCULAR HGB CONC 33.9 g/dl (32.0-37.0); MEAN CORPUSCULAR VOLUME 88.2 fl (82.0-101.0); MEAN PLATELET VOLUME 7.8 fl (7.4-10.4); MONOCYTE # 0.6 10^3/ul (0.3-0.9); MONOCYTES % 5.9 % (0.0-11.0); NEUTROPHIL # 6.2 10^3/ul (1.6-7.5); NEUTROPHILS % 62.5 % (39.0-77.0); PLATELET COUNT 301 10^3/UL (140-440); RED BLOOD COUNT 4.03 10^6/ul (4.20-5.40); RED CELL DISTRIBUTION WIDTH 14.2 % (11.5-14.5)
[2016-07-18] MEDS: AZITHROMYCIN 500MG/NS (PMX) 250 ML IVPB SCH (08:29)
[2016-07-18] MEDS: BUSPIRONE 10 MG TAB PO SCH (08:29)
[2016-07-18] MEDS: CHOLECALCIFEROL 1,000 UNIT TAB PO SCH (08:29)
[2016-07-18] MEDS: FLUCONAZOLE 100 MG TAB PO SCH (08:31)
[2016-07-18] MEDS: GABAPENTIN 300 MG CAP PO SCH ×3 (08:31→20:49)
[2016-07-18 08:32] LABS: ALBUMIN 3.7 g/dl (3.3-4.9); POTASSIUM 3.9 mmol/L (3.5-5.1)
[2016-07-18 08:33] LABS: CONDITION 1
--- NOTE | 2016-07-18 08:34 | GILP ---
DATE OF PROCEDURE: PROCEDURE: Esophagogastroduodenoscopy with biopsies. BRIEF HISTORY AND INDICATIONS: The patient is being evaluated for possible foreign body in the uppe r esophagus and pharynx. PREMEDICATION: Monitored anesthesia care by anesthesiologist. BRIEF HISTORY AND INDICATIONS: The patient is a 46-year-old female who, 2 days ago, was eating madonna mauricio fish and felt a fish bone get stuck in her throat. Since then she has had increasing difficulty swallowing and discomfort upon swallowing both in the pharynx as well as the upper esophageal area. She was evaluated at [facility] where a chest x-ray was obtained which showed no abnormalities and then was transferred to [facility] for insurance reasons. At this point, we will evaluate endoscopically to rule out the presence of any foreign body. PREMEDICATION: Monitored anesthesia care by anesthesiologist. TECHNIQUE: After informed consent, with the patient/relatives understanding the procedure, its indic ations, potential risks and complications, including but not limited to: allergic reaction, bleeding , perforation or infection, and after all pertinent questions were answered to the patient's satisfa ction, the patient/relatives signed witnessed informed consent. Following this, premedication was administered slowly IV push under careful cardiovascular and respi ratory monitoring with pulse oximetry, automatic blood pressure and mushroom cutter. Once the sedative effect was achieved the patient was place in the left lateral decubitus, the panen doscope was introduced and advanced under visual control. Careful examination of the upper gastrointestinal tract, both on insertion as well as withdrawal of the instrument disclosed the following findings: INSTRUMENT USED: Olympus panendoscope FINDINGS: The posterior pharynx shows significant erythema, edema and the tonsils are very prominen t and swollen. With the limitations of this type of examination, I see no foreign body in the area of the tonsils or posterior pharynx. Vocal cords are normal. The esophagus shows mild erythema and edema of the mucosa at the EG junction. No foreign bodies or areas of obstruction are noted throug hout in the length of the esophagus. STOMACH: Upon entrance to the stomach, air was insufflated, the gastric faustin distended normally. There is mild erythema and edema of the mucosa of the body and antrum. Biopsies were obtained to ru le out H. pylori infection. PYLORUS: The pylorus appears patent and within normal limits, with no evidence of gastric outlet obs truction. DUODENUM: The duodenal mucosa was carefully examined in the duodenal bulb as well as the second port ion of the duodenum and appears unremarkable with no evidence of duodenitis, ulcer or neoplasm. The instrument was then withdrawn, the patient tolerated the procedure well and was transfer out of the endoscopy suite awake, and in good condition to continue recovery under observation. IMPRESSION: 1. Pharyngitis and tonsillitis. No foreign body identified (limited examination). 2. Distal esophagitis, mild. 3. Gastritis, mild, rule out Helicobacter pylori infection, biopsies obtained. PLAN: The patient will be treated with PPIs. A CT of the neck is advisable to look for any foreign bodies and ENT evaluation would be advisable as well. Dictated By: DOUGLAS ESPARZA MS/CHRISTIANO Conf#: [id number] DID#: [id number] CC: GARY KRAUSE MD; DOUGLAS ESPARZA; ;*EndCC*
[2016-07-18 08:35] LABS: ALBUMIN/GLOBULIN RATIO 1.19; BILIRUBIN,INDIRECT 0.5 mg/dl (0-1.1); BILIRUBIN,TOTAL 0.5 mg/dl (0.2-1.3); CREATININE 0.65 mg/dl (0.44-1.00); PHOSPHORUS 3.8 mg/dl (2.5-4.9); TOTAL PROTEIN 6.8 g/dl (6.1-8.1)
[2016-07-18 08:36] LABS: MAGNESIUM 1.8 mg/dl (1.7-2.5)
[2016-07-18] MEDS ORDERED: DILTIAZEM (CD) 120 MG CAP PO SCH (09:00)
[2016-07-18] MEDS: morphine 2 MG INJ IV PRN (11:04)
[2016-07-18] MEDS ORDERED: MAGNESIUM SULFATE 2 GM/50 ML 50 ML IVPB ONE (13:00)
--- NOTE | 2016-07-18 14:07 | PN ---
Date/Time of Note Date/Time of Note DATE: 07/18/16 TIME: 14:06 Assessment/Plan VTE Prophylaxis VTE Prophylaxis Intervention: SCD's Lines/Catheters IV Catheter Type (from [facility]): Peripheral IV Urinary Cath still in place: No Assessment/Plan Chief Complaint/Hosp Course 1. Tonsillitis and pharyngitis. Continue antibiotics as per infectious diseases. 2. Mild gastritis and mild esophagitis. Continue proton pump inhibitors. Gastroenterology following. 3. Type 2 diabetes mellitus. Continue sliding scale insulin. Hemoglobin A1c 6.9. Blood sugars fairly well controlled. We will hold the metformin specifically since the patient is scheduled to get a left heart catheterization on 07/20/2016. 4. Cardiac arrhythmias. The patient is having frequent PVCs and bradycardia. The patient's Cardizem will be put on hold. Cardiology following. Continue telemetry monitoring. 5. Anxiety. The patient will be maintained on p.r.n. anxiolytics. The patient already on scheduled BuSpar. 6. Asthma. There is no evidence of any acute exacerbation. The patient will be continued on inhaled bronchodilators. 7. Depression. The patient will be continued on SNRIs. 8. Fluids, electrolytes, and nutrition. Carbohydrate controlled diet. 9. DVT prophylaxis. Bilateral sequential compression devices. 10. Gastrointestinal prophylaxis. Proton pump inhibitors. 11. Plan. Continue antimicrobials as per infectious diseases. Continue telemetry monitoring. Await pathology from gastric biopsy. Case discussed with Dr. Kwan. Problems: Subjective 24 Hr Interval Summary Free Text/Dictation Dysphagia improved. Tolerating regular consistency diet. However, the patient was complaining of dizziness. The patient had an unsteady gait. Exam/Review of Systems Vital Signs Vitals Vital Signs Date Time Temp Pulse Resp B/P Pulse Ox O2 Delivery O2 Flow Rate FiO2 07/18/16 12:24 49 07/18/16 07:58 98.6 18 109/54 99 07/18/16 06:12 2.0 07/18/16 04:00 Nasal Cannula Intake and Output 07/17/16 07/17/16 07/18/16 15:00 23:00 07:00 Intake Total 250 ml 720 ml 1700 ml Output Total 400 ml 600 ml Balance -150 ml 720 ml 1100 ml Exam GENERAL: This is an obese female lying in bed in no apparent distress. HEENT: Head normocephalic and atraumatic. Eyes: Anicteric sclerae. Conjunctivae clear. ENT: Nasal septum is midline. Oral mucosa is dry. Tongue midline. Uvula midline. Enlarged inflamed tonsils bilaterally. NECK: Short and obese. RESPIRATORY: Bilaterally diminished breath sounds. No adventitious breath sounds. No use of accessory muscles of respiration. CARDIAC: Regular rate and rhythm. Sinus bradycardia. GASTROINTESTINAL: Abdomen soft, nontender and nondistended. Bowel sounds positive in all 4 quadrants. GENITOURINARY: Deferred. EXTREMITIES: No cyanosis, no clubbing, no edema. Peripheral pulses are palpable. NEUROLOGIC: The patient is awake, alert and oriented. Cranial nerves are grossly intact. Results Result Diagram: 07/18/16 0735 07/18/16 0735 Results 24 hrs Laboratory Tests Test 07/17/16 17:23 07/17/16 18:30 07/17/16 21:21 07/18/16 01:00 Bedside Glucose 77 147 Troponin I < 0.012 < 0.012 Test 07/18/16 07:35 07/18/16 07:48 07/18/16 11:31 Alanine Aminotransferase (ALT/SGPT) 41 Albumin 3.7 Albumin/Globulin Ratio 1.19 Alkaline Phosphatase 66 Anion Gap 15 Aspartate Amino Transf (AST/SGOT) 27 Basophils # 0.0 Basophils % 0.4 Blood Urea Nitrogen 9 Calcium Level 9.0 Carbon Dioxide Level 25 Chloride Level 105 Creatinine 0.65 Direct Bilirubin 0.00 Eosinophils # 0.2 Eosinophils % 2.1 Globulin 3.10 Glucose Level 110 Hematocrit 35.5 L Hemoglobin 12.1 Indirect Bilirubin 0.5 Lymphocytes # 2.9 Lymphocytes % 29.1 Magnesium Level 1.8 Mean Corpuscular Hemoglobin 29.9 Mean Corpuscular Hemoglobin Concent 33.9 Mean Corpuscular Volume 88.2 Mean Platelet Volume 7.8 Monocytes # 0.6 Monocytes % 5.9 Neutrophils # 6.2 Neutrophils % 62.5 Nucleated Red Blood Cells # 0.0 Nucleated Red Blood Cells % 0.0 Phosphorus Level 3.8 Platelet Count 301 Potassium Level 3.9 Red Blood Count 4.03 L Red Cell Distribution Width 14.2 Sodium Level 141 Total Bilirubin 0.5 Total Protein 6.8 White Blood Count 10.0 Bedside Glucose 114 104 Medications Medications Current Medications Sodium Chloride (1/2 NS) 1,000 ml @ 100 mls/hr Q10H IV Last administered on 13:01; Admin Dose 100 MLS/HR; Start 07/17/16 at 07:20 Ondansetron HCl (Zofran Inj) 4 mg Q6H PRN IV NAUSEA AND/OR VOMITING Last administered on 07/18/16 01:39; Admin Dose 4 MG; Start 07/17/16 at 07:30 Morphine Sulfate 2 mg 2 mg Q4H PRN IV SEVERE PAIN LEVEL 7-10 Last administered on 07/18/16 11:04; Admin Dose 2 MG; Start 07/17/16 at 07:30 Azithromycin (Zithromax 500mg/ NS (Pmx)) 250 ml @ 250 mls/hr Q24H IVPB Last administered on 07/18/16 08:29; Admin Dose 250 MLS/HR; Start 07/17/16 at 09:00 Acetaminophen (Tylenol Tab) 650 mg Q6H PRN PO PAIN LEVEL 1-3 OR FEVER; Start at 09:00 Zolpidem Tartrate (Ambien) 5 mg QHS PRN PO INSOMNIA; Start 07/17/16 at 09:00 Hydralazine HCl (Apresoline) 10 mg Q6H PRN IV SBP>160; Start 07/17/16 at 09:00 Diagnostic Test (Pha) (Accucheck) 1 ea 02 XX ; Start 07/18/16 at 02:00 Lorazepam (Ativan) 1 mg Q8H PRN IV Anxiety; Start 07/17/16 at 09:00 Miscellaneous Information 1 ea NOTE XX ; Start 07/17/16 at 09:30 Glucose (Glutose) 15 gm Q15M PRN PO DECREASED GLUCOSE; Start 07/17/16 at 09:30 Glucose (Glutose) 22.5 gm Q15M PRN PO DECREASED GLUCOSE; Start 07/17/16 at 09: 30 Dextrose (D50w Syringe) 25 ml Q15M PRN IV DECREASED GLUCOSE; Start 07/17/16 at 09:30 Dextrose (D50w Syringe) 50 ml Q15M PRN IV DECREASED GLUCOSE; Start 07/17/16 at 09:30 Glucagon (Glucagen) 1 mg Q15M PRN IM DECREASED GLUCOSE; Start 07/17/16 at 09:30 Glucose (Glutose) 15 gm Q15M PRN BUCCAL DECREASED GLUCOSE; Start 07/17/16 at 09 :30 Pantoprazole (Protonix Iv) 40 mg DAILY@06 IV Last administered on 07/18/16 06: 14; Admin Dose 40 MG; Start 07/18/16 at 06:00 Buspirone HCl (Buspar) 10 mg DAILY PO Last administered on 07/18/16 08:29; Admin Dose 10 MG; Start 07/18/16 at 09:00 Gabapentin (Neurontin) 300 mg TID PO Last administered on 07/18/16 12:24; Admin Dose 300 MG; Start 07/17/16 at 21:00 Cholecalciferol (Vitamin D) 1,000 unit DAILY PO Last administered on 07/18/16 08:29; Admin Dose 1,000 UNIT; Start 07/18/16 at 09:00 Fluconazole 100 mg 100 mg DAILY PO Last administered on 07/18/16 08:31; Admin Dose 100 MG; Start 07/17/16 at 21:00 Magnesium Sulfate (Magnesium Sulfate 2 Gm/50 ml) 50 ml @ 25 mls/hr ONCE ONCE IVPB Last administered on 07/18/16 12:58; Admin Dose 25 MLS/HR; Start at 13:00; Stop 07/18/16 at 14:59 JOSESITO CASTLE NP Jul 18, 2016 14:07
--- NOTE | 2016-07-18 14:17 | CONS ---
Date/Time of Note Date/Time of Note DATE: 07/18/16 TIME: 14:05 Assessment/Plan Assessment/Plan Chief Complaint/Hosp Course ID PROGRESS NOTE 24H INTERVAL SUMMARY POD#1 => s/p EGD with NO FISHBONES present * Pt is requesting Morphine pain meds -- atypical cp due to frequent PVCs, she is reluctant to get OOB->Chair w/RN assist prefers to lay in bed and complain, says sitting up makes her dizzy. * I explained the results of the EGD "No Fishbones" and she finds this hard to believe "Why would I have bilateral tonsilitis w/pus on tonsils the same day I ate fish with bones?" * No fevers/chills, taking POs denies dysphagia/odynophagia * Anxiety over recent events her concern of swallowing fishbones is waning s/p EGD 07/17/16 NO FOREIGN BODIES Machelle: 07/17/16-529 Rcvd: 07/17/16-2023 THROAT Sp Descrip: Microbiology THROAT CULTURE Preliminary Organism 1 NORMAL RESPIRATORY PERRI QUANTITY 1+ No beta streptococci isolated after 24 hours ID ASSESSMENT 46 yo obese (BMI >33.+) Female w/ PMHx Psych:Depression/Anxiety admit with: 1. Acute pharyngitis w/painful bilateral tonsillitis w/reported hx of dysphagia related to ANXIETY about swallowing fishbones-> Denies odynophagia * CT neck soft tissue: Prominent bilateral tonsils, no abscess, bilat sub mandibular adenopathy * History of fishbone in posterior pharynx or upper esophagus after eating [place]apia * Anxiety playing a role in her perception of dysphagia - she has been "scared to swallow" believing fishbones poking and infecting her tonsils. 2. POD #1 07/17/16: EGD today: NO foreign body, (+)pharyngitis/bilateral tonsillitis/ mild gastritis-distal esophagitis 3. GERD=> Gastritis + Distal Esophagitis => biopsy pending, r/o H. Pylor 4. Atypical chest pain => mixed etiology DDx Gastritis/distal esophagitis, (+) Anxiety w/PVCs * CARDS work planned left heart catheterization on 07/20/2016, 5. Cardiac arrhythmia Bradycardia - no pauses and no symptoms w/ premature ventricular contractions -> CARDS on the case 6. COPD Asthma = stable without evidence of exacerbation -> no wheezing * CT Chest 07/17/16 with ATX: Subsegmental atelectasis is seen within the posterior medial right upper lobe as well as the posterior medial right lower lobe with discoid atelectatic change seen in the lateral left upper lobe and the posterior left lower lobe. 6. 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 Psych Dx: Anxiety/Depression disorder on Buspar ABX ALLERGIES: PCN CURRENT ABX: Azithromycin + Diflucan s/p Clindamycin ID RECOMMENDATIONS 1. Suspect Opioid Drug Seeking behavior -- Psych issues w/anxiety out of proportion to the pharyngitis/bilateral tonsillitis. * Consider DC all opioids -- she is refusing to get OOB-> Chair with RN assist, multiple small complaints, c/o PVCs * ?Delusions of fishbone retention? She is convinced fishbones caused bilateral tonsillitis. 2. Possible viral etiology to her acute bilateral tonisillits/pharyngitis, she reportedly saw "pus" on her tonsils the day after eating [place]apia . and thought fishbones poked both her tonsils creating infection; it is possible she simply had viral infection at the same time she was eating Talapia ? * Anxiety appears to be active, ruminating about trauma and concern fishbones, afraid to swallow = now eating puddings * No evidence of bacterial infection=>Per notes (-)Strep A per rapid test @ [facility], repeat throat culture (-). * 07/17/16 THROAT CULTURE Preliminary Organism 1 NORMAL RESPIRATORY PERRI QUANTITY 1+ No beta streptococci isolated after 24 hours 2. On exam there is no exudate w/mild erythema bilateral tonsils and mild white tongue coating * = NO COMPLAIN OF PAIN DURING SWAB OF BILATERAL TONSILS = she denied tonsillar pain with swab pressure. * Possible oral candidiasis w/distal esophagitis 3. F/U final result throat/tonsil swab pending (-)preliminary day 1 = normal oral perri 4. DC Azith tomorrow after 3rd dose, continue oral Diflucan for concern oral/ esophageal candidiasis 6. Await GI Bx r/o H. Pylori . Problems: Consultation Date/Type/Reason Admit Date/Time Jul 17, 2016 at 05:00 Initial Consult Date 07/17/16 Type of Consultation: INFECTIOUS DISEASES Referring Provider: JOSESITO CASTLE AERIAL INSTALLER Exam/Review of Systems Vital Signs Vitals Vital Signs Date Time Temp Pulse Resp B/P Pulse Ox O2 Delivery O2 Flow Rate FiO2 07/18/16 12:24 49 07/18/16 07:58 98.6 18 109/54 99 07/18/16 06:12 2.0 07/18/16 04:00 Nasal Cannula Intake and Output 07/17/16 07/17/16 07/18/16 15:00 23:00 07:00 Intake Total 250 ml 720 ml 1700 ml Output Total 400 ml 600 ml Balance -150 ml 720 ml 1100 ml Results Result Diagram: 07/18/16 0735 07/18/16 0735 Results 24 hrs Laboratory Tests Test 07/17/16 17:23 07/17/16 18:30 07/17/16 21:21 07/18/16 01:00 Bedside Glucose 77 147 Troponin I < 0.012 < 0.012 Test 07/18/16 07:35 07/18/16 07:48 07/18/16 11:31 Alanine Aminotransferase (ALT/SGPT) 41 Albumin 3.7 Albumin/Globulin Ratio 1.19 Alkaline Phosphatase 66 Anion Gap 15 Aspartate Amino Transf (AST/SGOT) 27 Basophils # 0.0 Basophils % 0.4 Blood Urea Nitrogen 9 Calcium Level 9.0 Carbon Dioxide Level 25 Chloride Level 105 Creatinine 0.65 Direct Bilirubin 0.00 Eosinophils # 0.2 Eosinophils % 2.1 Globulin 3.10 Glucose Level 110 Hematocrit 35.5 L Hemoglobin 12.1 Indirect Bilirubin 0.5 Lymphocytes # 2.9 Lymphocytes % 29.1 Magnesium Level 1.8 Mean Corpuscular Hemoglobin 29.9 Mean Corpuscular Hemoglobin Concent 33.9 Mean Corpuscular Volume 88.2 Mean Platelet Volume 7.8 Monocytes # 0.6 Monocytes % 5.9 Neutrophils # 6.2 Neutrophils % 62.5 Nucleated Red Blood Cells # 0.0 Nucleated Red Blood Cells % 0.0 Phosphorus Level 3.8 Platelet Count 301 Potassium Level 3.9 Red Blood Count 4.03 L Red Cell Distribution Width 14.2 Sodium Level 141 Total Bilirubin 0.5 Total Protein 6.8 White Blood Count 10.0 Bedside Glucose 114 104 Medications Medications Current Medications Sodium Chloride (1/2 NS) 1,000 ml @ 100 mls/hr Q10H IV Last administered on 13:01; Admin Dose 100 MLS/HR; Start 07/17/16 at 07:20 Ondansetron HCl (Zofran Inj) 4 mg Q6H PRN IV NAUSEA AND/OR VOMITING Last administered on 07/18/16 01:39; Admin Dose 4 MG; Start 07/17/16 at 07:30 Morphine Sulfate 2 mg 2 mg Q4H PRN IV SEVERE PAIN LEVEL 7-10 Last administered on 07/18/16 11:04; Admin Dose 2 MG; Start 07/17/16 at 07:30 Azithromycin (Zithromax 500mg/ NS (Pmx)) 250 ml @ 250 mls/hr Q24H IVPB Last administered on 07/18/16 08:29; Admin Dose 250 MLS/HR; Start 07/17/16 at 09:00 Acetaminophen (Tylenol Tab) 650 mg Q6H PRN PO PAIN LEVEL 1-3 OR FEVER; Start at 09:00 Zolpidem Tartrate (Ambien) 5 mg QHS PRN PO INSOMNIA; Start 07/17/16 at 09:00 Hydralazine HCl (Apresoline) 10 mg Q6H PRN IV SBP>160; Start 07/17/16 at 09:00 Diagnostic Test (Pha) (Accucheck) 1 ea 02 XX ; Start 07/18/16 at 02:00 Lorazepam (Ativan) 1 mg Q8H PRN IV Anxiety; Start 07/17/16 at 09:00 Miscellaneous Information 1 ea NOTE XX ; Start 07/17/16 at 09:30 Glucose (Glutose) 15 gm Q15M PRN PO DECREASED GLUCOSE; Start 07/17/16 at 09:30 Glucose (Glutose) 22.5 gm Q15M PRN PO DECREASED GLUCOSE; Start 07/17/16 at 09: 30 Dextrose (D50w Syringe) 25 ml Q15M PRN IV DECREASED GLUCOSE; Start 07/17/16 at 09:30 Dextrose (D50w Syringe) 50 ml Q15M PRN IV DECREASED GLUCOSE; Start 07/17/16 at 09:30 Glucagon (Glucagen) 1 mg Q15M PRN IM DECREASED GLUCOSE; Start 07/17/16 at 09:30 Glucose (Glutose) 15 gm Q15M PRN BUCCAL DECREASED GLUCOSE; Start 07/17/16 at 09 :30 Pantoprazole (Protonix Iv) 40 mg DAILY@06 IV Last administered on 07/18/16 06: 14; Admin Dose 40 MG; Start 07/18/16 at 06:00 Buspirone HCl (Buspar) 10 mg DAILY PO Last administered on 07/18/16 08:29; Admin Dose 10 MG; Start 07/18/16 at 09:00 Gabapentin (Neurontin) 300 mg TID PO Last administered on 07/18/16 12:24; Admin Dose 300 MG; Start 07/17/16 at 21:00 Cholecalciferol (Vitamin D) 1,000 unit DAILY PO Last administered on 07/18/16 08:29; Admin Dose 1,000 UNIT; Start 07/18/16 at 09:00 Fluconazole 100 mg 100 mg DAILY PO Last administered on 07/18/16 08:31; Admin Dose 100 MG; Start 07/17/16 at 21:00 Magnesium Sulfate (Magnesium Sulfate 2 Gm/50 ml) 50 ml @ 25 mls/hr ONCE ONCE IVPB Last administered on 07/18/16 12:58; Admin Dose 25 MLS/HR; Start at 13:00; Stop 07/18/16 at 14:59 LLUVIA FREITAS NP Jul 18, 2016 14:17
[2016-07-18] MEDS: ACETAMINOPHEN 325 MG TAB PO PRN (14:56)
--- NOTE | 2016-07-18 15:09 | CONS ---
DATE OF ADMISSION: 07/17/2016 DATE OF CONSULTATION: 07/18/2016 TYPE OF CONSULTATION: Cardiac. REASON FOR CONSULTATION: Bradycardia with PVCs. SUBJECTIVE: The patient is anxious and crying. Denies any chest pain at the current time. She rodas s report dizziness while lying in bed. The patient has been evaluated for foreign body and found to have tonsillitis. PHYSICAL EXAMINATION: VITAL SIGNS: Temperature 98.6, pulse 49 with frequent PVCs, blood pressure 109/54, oxygen saturatio n 99%. LUNGS: Clear. CARDIAC: Regular rate and rhythm. ABDOMEN: Soft, nontender. EXTREMITIES: Reveal no edema. GENERAL: She is on 1. BuSpar. 2. Protonix. 3. Neurontin. 4. Fluconazole. 5. Insulin. 6. Ambien. ASSESSMENT: Bradycardia with PVCs, no specific treatment. Symptoms appear to be more related to he r tonsillitis. At this time, I would not recommend acute cardiac intervention. Dictated By: PILY COOPER/CHRISTIANO Conf#: [id number] DID#: [id number]
--- NOTE | 2016-07-18 19:30 | CONS ---
DATE OF ADMISSION: 07/17/2016 DATE OF CONSULTATION: 07/17/2016 ADDENDUM TO INFECTIOUS DISEASE CONSULTATION Kelly Avitia was seen in consultation by the infectious disease team. We noted acute pharyngitis with painful bilateral tonsils with dysphagia. The patient believes that she had a fish bone in her mout h that irritated her tonsils after she ate tilapia. On exam there was no exudate. There was mild erythema on bilateral tonsils and mild white tongue co ating. Oral tonsil swab for bacterial C and S was obtained. The patient is currently on fluconazol e and azithromycin. We will continue her on this regimen. A CT scan of the chest without contrast was done which did not show any infiltrates, so we will continue her on azithromycin, fluconazole an d close followup. Dictated By: GABRIEL MADDOX MD, JD/CHRISTIANO Conf#: [id number] DID#: [id number]
[2016-07-19] VITALS (11 sets, daily range): BP systolic 96–120; BP diastolic 53–61; PULSE 51–65; RESP 16–20
[2016-07-19] MEDS: ACCUCHECK XX SCH (02:00)
[2016-07-19] MEDS: SOD CHLORIDE 0.45% 1,000 ML IV SCH ×2 (04:38→18:17)
[2016-07-19] MEDS: PANTOPRAZOLE 40 MG INJ IV SCH (05:40)
[2016-07-19] MEDS: ONDANSETRON 4 MG INJ IV PRN (06:21)
[2016-07-19 07:24] LABS: BASOPHILS % 0.3 % (0.0-2.0); EOSINOPHILS # 0.2 10^3/ul (0.0-0.5); EOSINOPHILS % 1.9 % (0.0-7.0); HEMATOCRIT 35.4 % (37.0-47.0); LYMPHOCYTES # 2.8 10^3/ul (0.8-2.9); LYMPHOCYTES % 28.9 % (15.0-51.0); MEAN CORPUSCULAR HEMOGLOBIN 29.8 pg (29.0-33.0); MEAN CORPUSCULAR HGB CONC 33.8 g/dl (32.0-37.0); MEAN CORPUSCULAR VOLUME 88.3 fl (82.0-101.0); MEAN PLATELET VOLUME 7.9 fl (7.4-10.4); MONOCYTE # 0.6 10^3/ul (0.3-0.9); MONOCYTES % 5.9 % (0.0-11.0); NEUTROPHIL # 6.1 10^3/ul (1.6-7.5); PLATELET COUNT 300 10^3/UL (140-440); RED BLOOD COUNT 4.01 10^6/ul (4.20-5.40); UNCORRECTED WBC 9.6 10^3/ul (4.8-10.8); WHITE BLOOD COUNT 9.6 10^3/ul (4.8-10.8)
[2016-07-19 07:26] LABS: POTASSIUM 3.9 mmol/L (3.5-5.1)
[2016-07-19 07:28] LABS: CREATININE 0.66 mg/dl (0.44-1.00)
[2016-07-19 07:30] LABS: CALCIUM 8.6 mg/dl (8.4-10.2); CONDITION 1; PHOSPHORUS 3.8 mg/dl (2.5-4.9)
[2016-07-19] MEDS: INSULIN ASPART [NOVOLOG] 3 ML PEN SC SCH ×4 (07:55→21:00)
[2016-07-19] MEDS: AZITHROMYCIN 500MG/NS (PMX) 250 ML IVPB SCH (09:23)
[2016-07-19] MEDS: GABAPENTIN 300 MG CAP PO SCH ×3 (09:23→21:13)
[2016-07-19] MEDS: VENLAFAXINE (XR) 75 MG CAP PO SCH (09:23)
[2016-07-19] MEDS: CHOLECALCIFEROL 1,000 UNIT TAB PO SCH (09:23)
[2016-07-19] MEDS: BUSPIRONE 10 MG TAB PO SCH (09:24)
[2016-07-19] MEDS: FLUCONAZOLE 100 MG TAB PO SCH (09:29)
--- NOTE | 2016-07-19 12:40 | CONS ---
Date/Time of Note Date/Time of Note DATE: 07/19/16 TIME: 12:37 Assessment/Plan Assessment/Plan Additional Assessment/Plan Bradycardia PVCs Tonsillitis Anxiety -Patient with intermittent bradycardia, lowest seen on telemetry has been 42 with frequent PVCs. It is unclear if her symptoms are related to her bradycardia and PVC episodes. Patient tells me she is under the care of her bobbin stripper Dr. Tompkins and she is planned for left heart catheterization tomorrow. I did contact him and he will be taking over her care. Would continue telemetry monitoring. Supplement potassium to maintain about 4.0 and magnesium above 2.0. Consultation Date/Type/Reason Admit Date/Time Jul 17, 2016 at 05:00 Initial Consult Date 07/17/16 Type of Consultation: cv Referring Provider: JOSESITO CASTLE NP 24 HR Interval Summary Free Text/Dictation Patient complains of intermittent dizziness and anxiety. This is been coming and going for a number of months. Exam/Review of Systems Vital Signs Vitals Vital Signs Date Time Temp Pulse Resp B/P Pulse Ox O2 Delivery O2 Flow Rate FiO2 07/19/16 11:45 98.2 60 16 104/60 97 07/18/16 20:40 Nasal Cannula 2.0 Intake and Output 07/18/16 07/18/16 07/19/16 15:00 23:00 07:00 Intake Total 900 ml 1040 ml 1000 ml Output Total 1400 ml Balance 900 ml -360 ml 1000 ml Exam Anxious Constitutional: alert, oriented Head: normocephalic Neck: supple Respiratory: clear to auscultation, normal air movement Cardiovascular: other (S1-S2 heard), regular rate and rhythm Gastrointestinal: bowel sounds, non-tender, other (No guarding), soft Extremities: other (No edema) Results Result Diagram: 07/19/16 0615 07/19/16 0615 Results 24 hrs Laboratory Tests Test 07/18/16 17:08 07/18/16 20:19 07/19/16 06:15 07/19/16 07:46 Bedside Glucose 96 117 107 Anion Gap 16 Basophils # 0.0 Basophils % 0.3 Blood Urea Nitrogen 10 Calcium Level 8.6 Carbon Dioxide Level 23 Chloride Level 105 Creatinine 0.66 Eosinophils # 0.2 Eosinophils % 1.9 Glucose Level 103 Hematocrit 35.4 L Hemoglobin 12.0 Lymphocytes # 2.8 Lymphocytes % 28.9 Magnesium Level 2.0 Mean Corpuscular Hemoglobin 29.8 Mean Corpuscular Hemoglobin Concent 33.8 Mean Corpuscular Volume 88.3 Mean Platelet Volume 7.9 Monocytes # 0.6 Monocytes % 5.9 Neutrophils # 6.1 Neutrophils % 63.0 Nucleated Red Blood Cells # 0.0 Nucleated Red Blood Cells % 0.0 Phosphorus Level 3.8 Platelet Count 300 Potassium Level 3.9 Red Blood Count 4.01 L Red Cell Distribution Width 14.0 Sodium Level 140 White Blood Count 9.6 Test 07/19/16 11:43 Bedside Glucose 102 Medications Medications Current Medications Sodium Chloride (1/2 NS) 1,000 ml @ 100 mls/hr Q10H IV Last administered on 04:38; Admin Dose 100 MLS/HR; Start 07/17/16 at 07:20 Ondansetron HCl (Zofran Inj) 4 mg Q6H PRN IV NAUSEA AND/OR VOMITING Last administered on 07/19/16 06:21; Admin Dose 4 MG; Start 07/17/16 at 07:30 Morphine Sulfate 2 mg 2 mg Q4H PRN IV SEVERE PAIN LEVEL 7-10 Last administered on 07/18/16 11:04; Admin Dose 2 MG; Start 07/17/16 at 07:30 Azithromycin (Zithromax 500mg/ NS (Pmx)) 250 ml @ 250 mls/hr Q24H IVPB Last administered on 07/19/16 09:23; Admin Dose 250 MLS/HR; Start 07/17/16 at 09:00 Acetaminophen (Tylenol Tab) 650 mg Q6H PRN PO PAIN LEVEL 1-3 OR FEVER Last administered on 07/18/16 14:56; Admin Dose 650 MG; Start 07/17/16 at 09:00 Zolpidem Tartrate (Ambien) 5 mg QHS PRN PO INSOMNIA; Start 07/17/16 at 09:00 Hydralazine HCl (Apresoline) 10 mg Q6H PRN IV SBP>160; Start 07/17/16 at 09:00 Diagnostic Test (Pha) (Accucheck) 1 ea 02 XX ; Start 07/18/16 at 02:00 Lorazepam (Ativan) 1 mg Q8H PRN IV Anxiety; Start 07/17/16 at 09:00 Miscellaneous Information 1 ea NOTE XX ; Start 07/17/16 at 09:30 Glucose (Glutose) 15 gm Q15M PRN PO DECREASED GLUCOSE; Start 07/17/16 at 09:30 Glucose (Glutose) 22.5 gm Q15M PRN PO DECREASED GLUCOSE; Start 07/17/16 at 09: 30 Dextrose (D50w Syringe) 25 ml Q15M PRN IV DECREASED GLUCOSE; Start 07/17/16 at 09:30 Dextrose (D50w Syringe) 50 ml Q15M PRN IV DECREASED GLUCOSE; Start 07/17/16 at 09:30 Glucagon (Glucagen) 1 mg Q15M PRN IM DECREASED GLUCOSE; Start 07/17/16 at 09:30 Glucose (Glutose) 15 gm Q15M PRN BUCCAL DECREASED GLUCOSE; Start 07/17/16 at 09 :30 Pantoprazole (Protonix Iv) 40 mg DAILY@06 IV Last administered on 07/19/16 05: 40; Admin Dose 40 MG; Start 07/18/16 at 06:00 Buspirone HCl (Buspar) 10 mg DAILY PO Last administered on 07/19/16 09:24; Admin Dose 10 MG; Start 07/18/16 at 09:00 Gabapentin (Neurontin) 300 mg TID PO Last administered on 07/19/16 09:23; Admin Dose 300 MG; Start 07/17/16 at 21:00 Cholecalciferol (Vitamin D) 1,000 unit DAILY PO Last administered on 07/19/16 09:23; Admin Dose 1,000 UNIT; Start 07/18/16 at 09:00 Venlafaxine HCl (Effexor Xr) 75 mg DAILY PO Last administered on 07/19/16 09: 23; Admin Dose 75 MG; Start 07/19/16 at 09:00 Chase Cain DO Jul 19, 2016 12:40
[2016-07-19] MEDS ORDERED: POTASSIUM CHLORIDE (SR) 10 MEQ TAB PO ONE (13:00)
--- NOTE | 2016-07-19 14:32 | PN ---
DATE: INFECTIOUS DISEASE PROGRESS NOTE SUBJECTIVE: Patient is alert, feels anxious. She is in no distress, no fevers. WBC 9.6, no shift, no bands. BUN 10, creatinine 0.66. MICROBIOLOGY: Cultures so far have been negative. ANTIMICROBIALS: The patient is on 1. Fluconazole. 2. Zithromax. PHYSICAL EXAMINATION: GENERAL: Well-nourished, well-developed, middle-aged woman who is alert, in no distress. HEENT: Head atraumatic, normocephalic. Sclerae anicteric. Buccal mucosa pink. NECK: Supple, trachea midline. CHEST: Rise symmetrical. Breath sounds clear. HEART: S1, S2. ABDOMEN: Soft. Bowel tones present. EXTREMITIES: No cyanosis. ASSESSMENT: 1. Pharyngitis and tonsillitis, no evidence of foreign body per EGD. 2. Mild distal esophagitis and gastritis. 3. Diabetes. 4. History of cardiac arrhythmia. 5. Depression. PLAN: The patient remains stable. Continue present care, antibiotics. Await for biopsy results. Jus Rodriguez. Dictated By: TIFFANIE RIVAS AUDIT CLERK for GABRIEL MADDOX MD NI/NTS Conf#: [id number] DID#: [id number]
--- NOTE | 2016-07-19 15:48 | PN ---
Date/Time of Note Date/Time of Note DATE: 07/19/16 TIME: 15:39 Assessment/Plan VTE Prophylaxis VTE Prophylaxis Intervention: SCD's Lines/Catheters IV Catheter Type (from Nrs): Peripheral IV Urinary Cath still in place: No Assessment/Plan Chief Complaint/Hosp Course Assessment and plan 1. Tonsillitis and pharyngitis. Continue antibiotic per ID. Appears to be improving at 2. Type 2 diabetes. A1c of 6.9. Continue on insulin regimen. 3. Cardiac arrhythmia. Patient seen with PVC and bradycardia. Tentative plan for angiogram per senior sustainability consultant. We'll follow-up 4. History of anxiety. Continue anxiolytics as needed 5. History of asthma. Stable at present. We'll provide with bronchodilators as needed 6. Major depression. Continue antidepressant medication DVT prophylaxis: SCDs GERD prophylaxis: PPI and Disposition and plan: Continue on antibiotics. s/p GI intervention . Plan for heart cath in a.m. We'll follow-up Discussed but of care with Dr. Mariee Problems: Subjective 24 Hr Interval Summary Free Text/Dictation Still with some reported dizziness. Exam/Review of Systems Vital Signs Vitals Vital Signs Date Time Temp Pulse Resp B/P Pulse Ox O2 Delivery O2 Flow Rate FiO2 07/19/16 15:02 63 07/19/16 13:43 2.0 07/19/16 11:45 98.2 16 104/60 97 07/19/16 09:00 Nasal Cannula Intake and Output 07/18/16 07/18/16 07/19/16 14:59 22:59 06:59 Intake Total 900 ml 1040 ml 1000 ml Output Total 1400 ml Balance 900 ml -360 ml 1000 ml Exam General: Reports some dizziness Eyes: pupils equal round, Anicteric sclera Neck: Supple nontender, no JVD Cardiac: S1, S2 auscultated, regular rhythm and rate Pulmonary: Minimally diminished lung bases GI: Abdomen soft nontender nondistended, bowel sounds active Extremities: No edema bilateral lower extremities Skin: Clean dry and intact Neurologic: Alert to person place and time and situation Results Result Diagram: 07/19/16 0615 07/19/16 0615 Results 24 hrs Laboratory Tests Test 07/18/16 17:08 07/18/16 20:19 07/19/16 06:15 07/19/16 07:46 Bedside Glucose 96 117 107 Anion Gap 16 Basophils # 0.0 Basophils % 0.3 Blood Urea Nitrogen 10 Calcium Level 8.6 Carbon Dioxide Level 23 Chloride Level 105 Creatinine 0.66 Eosinophils # 0.2 Eosinophils % 1.9 Glucose Level 103 Hematocrit 35.4 L Hemoglobin 12.0 Lymphocytes # 2.8 Lymphocytes % 28.9 Magnesium Level 2.0 Mean Corpuscular Hemoglobin 29.8 Mean Corpuscular Hemoglobin Concent 33.8 Mean Corpuscular Volume 88.3 Mean Platelet Volume 7.9 Monocytes # 0.6 Monocytes % 5.9 Neutrophils # 6.1 Neutrophils % 63.0 Nucleated Red Blood Cells # 0.0 Nucleated Red Blood Cells % 0.0 Phosphorus Level 3.8 Platelet Count 300 Potassium Level 3.9 Red Blood Count 4.01 L Red Cell Distribution Width 14.0 Sodium Level 140 White Blood Count 9.6 Test 07/19/16 11:43 Bedside Glucose 102 Medications Medications Current Medications Sodium Chloride (1/2 NS) 1,000 ml @ 100 mls/hr Q10H IV Last administered on 04:38; Admin Dose 100 MLS/HR; Start 07/17/16 at 07:20 Ondansetron HCl (Zofran Inj) 4 mg Q6H PRN IV NAUSEA AND/OR VOMITING Last administered on 07/19/16 06:21; Admin Dose 4 MG; Start 07/17/16 at 07:30 Morphine Sulfate 2 mg 2 mg Q4H PRN IV SEVERE PAIN LEVEL 7-10 Last administered on 07/18/16 11:04; Admin Dose 2 MG; Start 07/17/16 at 07:30 Azithromycin (Zithromax 500mg/ NS (Pmx)) 250 ml @ 250 mls/hr Q24H IVPB Last administered on 07/19/16 09:23; Admin Dose 250 MLS/HR; Start 07/17/16 at 09:00 Acetaminophen (Tylenol Tab) 650 mg Q6H PRN PO PAIN LEVEL 1-3 OR FEVER Last administered on 07/18/16 14:56; Admin Dose 650 MG; Start 07/17/16 at 09:00 Zolpidem Tartrate (Ambien) 5 mg QHS PRN PO INSOMNIA; Start 07/17/16 at 09:00 Hydralazine HCl (Apresoline) 10 mg Q6H PRN IV SBP>160; Start 07/17/16 at 09:00 Diagnostic Test (Pha) (Accucheck) 1 ea 02 XX ; Start 07/18/16 at 02:00 Lorazepam (Ativan) 1 mg Q8H PRN IV Anxiety; Start 07/17/16 at 09:00 Miscellaneous Information 1 ea NOTE XX ; Start 07/17/16 at 09:30 Glucose (Glutose) 15 gm Q15M PRN PO DECREASED GLUCOSE; Start 07/17/16 at 09:30 Glucose (Glutose) 22.5 gm Q15M PRN PO DECREASED GLUCOSE; Start 07/17/16 at 09: 30 Dextrose (D50w Syringe) 25 ml Q15M PRN IV DECREASED GLUCOSE; Start 07/17/16 at 09:30 Dextrose (D50w Syringe) 50 ml Q15M PRN IV DECREASED GLUCOSE; Start 07/17/16 at 09:30 Glucagon (Glucagen) 1 mg Q15M PRN IM DECREASED GLUCOSE; Start 07/17/16 at 09:30 Glucose (Glutose) 15 gm Q15M PRN BUCCAL DECREASED GLUCOSE; Start 07/17/16 at 09 :30 Pantoprazole (Protonix Iv) 40 mg DAILY@06 IV Last administered on 07/19/16 05: 40; Admin Dose 40 MG; Start 07/18/16 at 06:00 Buspirone HCl (Buspar) 10 mg DAILY PO Last administered on 07/19/16 09:24; Admin Dose 10 MG; Start 07/18/16 at 09:00 Gabapentin (Neurontin) 300 mg TID PO Last administered on 07/19/16 13:35; Admin Dose 300 MG; Start 07/17/16 at 21:00 Cholecalciferol (Vitamin D) 1,000 unit DAILY PO Last administered on 07/19/16 09:23; Admin Dose 1,000 UNIT; Start 07/18/16 at 09:00 Venlafaxine HCl (Effexor Xr) 75 mg DAILY PO Last administered on 07/19/16 09: 23; Admin Dose 75 MG; Start 07/19/16 at 09:00 MARITZA MURGUIA Jul 19, 2016 15:48
[2016-07-19] MEDS: ACETAMINOPHEN 325 MG TAB PO PRN (18:17)
[2016-07-19] MEDS: MECLIZINE 25 MG TAB PO PRN (21:13)
[2016-07-19] MEDS: ZOLPIDEM 5 MG TAB PO PRN (21:13)
[2016-07-20] VITALS (25 sets, daily range): BP systolic 106–119; BP diastolic 54–88; PULSE 53–82; RESP 13–22
[2016-07-20] MEDS: ACCUCHECK XX SCH (02:00)
[2016-07-20] MEDS: SOD CHLORIDE 0.45% 1,000 ML IV SCH (03:38)
[2016-07-20] MEDS: PANTOPRAZOLE 40 MG INJ IV SCH (05:48)
[2016-07-20 08:00] LABS: BASOPHILS % 0.4 % (0.0-2.0); EOSINOPHILS # 0.2 10^3/ul (0.0-0.5); EOSINOPHILS % 1.8 % (0.0-7.0); HEMOGLOBIN 12.7 g/dl (12.0-16.0); LYMPHOCYTES # 3.1 10^3/ul (0.8-2.9); LYMPHOCYTES % 30.6 % (15.0-51.0); MEAN CORPUSCULAR HEMOGLOBIN 30.1 pg (29.0-33.0); MEAN CORPUSCULAR HGB CONC 34.2 g/dl (32.0-37.0); MEAN CORPUSCULAR VOLUME 87.8 fl (82.0-101.0); MEAN PLATELET VOLUME 7.8 fl (7.4-10.4); MONOCYTE # 0.5 10^3/ul (0.3-0.9); MONOCYTES % 5.2 % (0.0-11.0); NEUTROPHIL # 6.2 10^3/ul (1.6-7.5); PLATELET COUNT 309 10^3/UL (140-440); RED BLOOD COUNT 4.21 10^6/ul (4.20-5.40); RED CELL DISTRIBUTION WIDTH 13.8 % (11.5-14.5); UNCORRECTED WBC 10.1 10^3/ul (4.8-10.8); WHITE BLOOD COUNT 10.1 10^3/ul (4.8-10.8)
[2016-07-20] MEDS: INSULIN ASPART [NOVOLOG] 3 ML PEN SC SCH ×4 (08:00→21:00)
[2016-07-20 08:06] LABS: CONDITION 1
[2016-07-20 08:07] LABS: POTASSIUM 4.1 mmol/L (3.5-5.1)
[2016-07-20 08:10] LABS: CREATININE 0.66 mg/dl (0.44-1.00)
[2016-07-20 08:11] LABS: CALCIUM 8.7 mg/dl (8.4-10.2)
[2016-07-20] MEDS: BUSPIRONE 10 MG TAB PO SCH (08:47)
[2016-07-20] MEDS: VENLAFAXINE (XR) 75 MG CAP PO SCH (08:48)
[2016-07-20] MEDS: GABAPENTIN 300 MG CAP PO SCH ×3 (08:49→21:03)
[2016-07-20] MEDS: CHOLECALCIFEROL 1,000 UNIT TAB PO SCH (08:49)
[2016-07-20] MEDS: AZITHROMYCIN 500MG/NS (PMX) 250 ML IVPB SCH (09:07)
--- NOTE | 2016-07-20 12:50 | CONS ---
Date/Time of Note Date/Time of Note DATE: 07/20/16 TIME: 12:49 Assessment/Plan Assessment/Plan Chief Complaint/Hosp Course SUBJECTIVE: Patient is alert, feels good. She is in no distress, no fevers. ANTIMICROBIALS: Zithromax. PHYSICAL EXAMINATION: GENERAL: Well-nourished, well-developed, middle-aged woman who is alert, in no distress. HEENT: Head atraumatic, normocephalic. Sclerae anicteric. Buccal mucosa pink. NECK: Supple, trachea midline. CHEST: Rise symmetrical. Breath sounds clear. HEART: S1, S2. ABDOMEN: Soft. Bowel tones present. EXTREMITIES: No cyanosis. ASSESSMENT: 1. Pharyngitis and tonsillitis, no evidence of foreign body per EGD. 2. Mild distal esophagitis and gastritis. 3. Diabetes. 4. History of cardiac arrhythmia. 5. Depression. 6. Oral thrush PLAN: The patient remains stable. Continue present care, antibiotics. Await for biopsy results. Nystatin paxton GREENE pt Problems: Consultation Date/Type/Reason Admit Date/Time Jul 17, 2016 at 05:00 Initial Consult Date 07/17/16 Type of Consultation: ID Referring Provider: JOSESITO CASTLE GLASS CLEANER Exam/Review of Systems Vital Signs Vitals Vital Signs Date Time Temp Pulse Resp B/P Pulse Ox O2 Delivery O2 Flow Rate FiO2 07/20/16 12:29 57 07/20/16 11:55 98.0 18 115/62 97 07/20/16 07:50 Nasal Cannula 2.0 Intake and Output 07/19/16 07/19/16 07/20/16 15:00 23:00 07:00 Intake Total 360 ml 1920 ml 1150 ml Output Total 850 ml Balance 360 ml 1070 ml 1150 ml Results Result Diagram: 07/20/16 0700 07/20/16 0700 Results 24 hrs Laboratory Tests Test 07/19/16 17:33 07/19/16 20:27 07/20/16 07:00 07/20/16 07:33 Bedside Glucose 95 113 91 Anion Gap 16 Basophils # 0.0 Basophils % 0.4 Blood Urea Nitrogen 10 Calcium Level 8.7 Carbon Dioxide Level 24 Chloride Level 103 Creatinine 0.66 Eosinophils # 0.2 Eosinophils % 1.8 Glucose Level 101 Hematocrit 37.0 Hemoglobin 12.7 Lymphocytes # 3.1 H Lymphocytes % 30.6 Mean Corpuscular Hemoglobin 30.1 Mean Corpuscular Hemoglobin Concent 34.2 Mean Corpuscular Volume 87.8 Mean Platelet Volume 7.8 Monocytes # 0.5 Monocytes % 5.2 Neutrophils # 6.2 Neutrophils % 62.0 Nucleated Red Blood Cells # 0.0 Nucleated Red Blood Cells % 0.0 Platelet Count 309 Potassium Level 4.1 Red Blood Count 4.21 Red Cell Distribution Width 13.8 Sodium Level 139 White Blood Count 10.1 Test 07/20/16 12:16 Bedside Glucose 100 Medications Medications Current Medications Sodium Chloride (1/2 NS) 1,000 ml @ 100 mls/hr Q10H IV Last administered on 03:38; Admin Dose 100 MLS/HR; Start 07/17/16 at 07:20 Ondansetron HCl (Zofran Inj) 4 mg Q6H PRN IV NAUSEA AND/OR VOMITING Last administered on 07/19/16 06:21; Admin Dose 4 MG; Start 07/17/16 at 07:30 Morphine Sulfate 2 mg 2 mg Q4H PRN IV SEVERE PAIN LEVEL 7-10 Last administered on 07/18/16 11:04; Admin Dose 2 MG; Start 07/17/16 at 07:30 Azithromycin (Zithromax 500mg/ NS (Pmx)) 250 ml @ 250 mls/hr Q24H IVPB Last administered on 07/20/16 09:07; Admin Dose 250 MLS/HR; Start 07/17/16 at 09:00 Acetaminophen (Tylenol Tab) 650 mg Q6H PRN PO PAIN LEVEL 1-3 OR FEVER Last administered on 07/19/16 18:17; Admin Dose 650 MG; Start 07/17/16 at 09:00 Zolpidem Tartrate (Ambien) 5 mg QHS PRN PO INSOMNIA Last administered on 21:13; Admin Dose 5 MG; Start 07/17/16 at 09:00 Hydralazine HCl (Apresoline) 10 mg Q6H PRN IV SBP>160; Start 07/17/16 at 09:00 Diagnostic Test (Pha) (Accucheck) 1 ea 02 XX ; Start 07/18/16 at 02:00 Lorazepam (Ativan) 1 mg Q8H PRN IV Anxiety; Start 07/17/16 at 09:00 Miscellaneous Information 1 ea NOTE XX ; Start 07/17/16 at 09:30 Glucose (Glutose) 15 gm Q15M PRN PO DECREASED GLUCOSE; Start 07/17/16 at 09:30 Glucose (Glutose) 22.5 gm Q15M PRN PO DECREASED GLUCOSE; Start 07/17/16 at 09: 30 Dextrose (D50w Syringe) 25 ml Q15M PRN IV DECREASED GLUCOSE; Start 07/17/16 at 09:30 Dextrose (D50w Syringe) 50 ml Q15M PRN IV DECREASED GLUCOSE; Start 07/17/16 at 09:30 Glucagon (Glucagen) 1 mg Q15M PRN IM DECREASED GLUCOSE; Start 07/17/16 at 09:30 Glucose (Glutose) 15 gm Q15M PRN BUCCAL DECREASED GLUCOSE; Start 07/17/16 at 09 :30 Pantoprazole (Protonix Iv) 40 mg DAILY@06 IV Last administered on 07/20/16 05: 48; Admin Dose 40 MG; Start 07/18/16 at 06:00 Buspirone HCl (Buspar) 10 mg DAILY PO Last administered on 07/19/16 09:24; Admin Dose 10 MG; Start 07/18/16 at 09:00 Gabapentin (Neurontin) 300 mg TID PO Last administered on 07/19/16 21:13; Admin Dose 300 MG; Start 07/17/16 at 21:00 Cholecalciferol (Vitamin D) 1,000 unit DAILY PO Last administered on 07/19/16 09:23; Admin Dose 1,000 UNIT; Start 07/18/16 at 09:00 Venlafaxine HCl (Effexor Xr) 75 mg DAILY PO Last administered on 07/19/16 09: 23; Admin Dose 75 MG; Start 07/19/16 at 09:00 Meclizine HCl (Antivert) 25 mg TID PRN PO dizziness Last administered on 21:13; Admin Dose 25 MG; Start 07/19/16 at 16:00 TIFFANIE IRVAS NP Jul 20, 2016 12:50
[2016-07-20] MEDS: NYSTATIN SUSP 5 ML CUP PO SCH ×3 (12:55→21:03)
--- NOTE | 2016-07-20 15:27 | PN ---
Date/Time of Note Date/Time of Note DATE: 07/20/16 TIME: 15:26 Assessment/Plan VTE Prophylaxis VTE Prophylaxis Intervention: SCD's Lines/Catheters IV Catheter Type (from Nrs): Peripheral IV Urinary Cath still in place: No Assessment/Plan Chief Complaint/Hosp Course Assessment and plan 1. Tonsillitis and pharyngitis. Continue antibiotic per ID. Appears to be improving at 2. Type 2 diabetes. A1c of 6.9. Continue on insulin regimen. 3. Cardiac arrhythmia. Patient seen with bradycardia. Tentative plan for angiogram per saw repairer. We'll follow-up 4. History of anxiety. Continue anxiolytics as needed 5. History of asthma. Stable at present. We'll provide with bronchodilators as needed 6. Major depression. Continue antidepressant medication DVT prophylaxis: SCDs GERD prophylaxis: PPI and Disposition and plan: Continue on antibiotics. Plan for heart cath. We'll follow -up Discussed but of care with Dr. Mariee Problems: Subjective 24 Hr Interval Summary Free Text/Dictation Reports feeling a little bit better today but still has some nausea Exam/Review of Systems Vital Signs Vitals Vital Signs Date Time Temp Pulse Resp B/P Pulse Ox O2 Delivery O2 Flow Rate FiO2 07/20/16 12:29 57 07/20/16 11:55 98.0 18 115/62 97 07/20/16 07:50 Nasal Cannula 2.0 Intake and Output 07/19/16 07/19/16 07/20/16 15:00 23:00 07:00 Intake Total 360 ml 1920 ml 1150 ml Output Total 850 ml Balance 360 ml 1070 ml 1150 ml Exam General: No dizziness at this time. Reports of nausea Eyes: pupils equal round, Anicteric sclera Neck: Supple nontender, no JVD Cardiac: S1, S2 auscultated, regular rhythm and rate Pulmonary: Minimally diminished lung bases GI: Abdomen soft nontender nondistended, bowel sounds active Extremities: No edema bilateral lower extremities Skin: Clean dry and intact Neurologic: Alert to person place and time and situation Results Result Diagram: 07/20/16 0700 07/20/16 0700 Results 24 hrs Laboratory Tests Test 07/19/16 17:33 07/19/16 20:27 07/20/16 07:00 07/20/16 07:33 Bedside Glucose 95 113 91 Anion Gap 16 Basophils # 0.0 Basophils % 0.4 Blood Urea Nitrogen 10 Calcium Level 8.7 Carbon Dioxide Level 24 Chloride Level 103 Creatinine 0.66 Eosinophils # 0.2 Eosinophils % 1.8 Glucose Level 101 Hematocrit 37.0 Hemoglobin 12.7 Lymphocytes # 3.1 H Lymphocytes % 30.6 Mean Corpuscular Hemoglobin 30.1 Mean Corpuscular Hemoglobin Concent 34.2 Mean Corpuscular Volume 87.8 Mean Platelet Volume 7.8 Monocytes # 0.5 Monocytes % 5.2 Neutrophils # 6.2 Neutrophils % 62.0 Nucleated Red Blood Cells # 0.0 Nucleated Red Blood Cells % 0.0 Platelet Count 309 Potassium Level 4.1 Red Blood Count 4.21 Red Cell Distribution Width 13.8 Sodium Level 139 White Blood Count 10.1 Test 07/20/16 12:16 Bedside Glucose 100 Medications Medications Current Medications Sodium Chloride (1/2 NS) 1,000 ml @ 100 mls/hr Q10H IV Last administered on 03:38; Admin Dose 100 MLS/HR; Start 07/17/16 at 07:20 Ondansetron HCl (Zofran Inj) 4 mg Q6H PRN IV NAUSEA AND/OR VOMITING Last administered on 07/19/16 06:21; Admin Dose 4 MG; Start 07/17/16 at 07:30 Morphine Sulfate 2 mg 2 mg Q4H PRN IV SEVERE PAIN LEVEL 7-10 Last administered on 07/18/16 11:04; Admin Dose 2 MG; Start 07/17/16 at 07:30 Azithromycin (Zithromax 500mg/ NS (Pmx)) 250 ml @ 250 mls/hr Q24H IVPB Last administered on 07/20/16 09:07; Admin Dose 250 MLS/HR; Start 07/17/16 at 09:00 Acetaminophen (Tylenol Tab) 650 mg Q6H PRN PO PAIN LEVEL 1-3 OR FEVER Last administered on 07/19/16 18:17; Admin Dose 650 MG; Start 07/17/16 at 09:00 Zolpidem Tartrate (Ambien) 5 mg QHS PRN PO INSOMNIA Last administered on 21:13; Admin Dose 5 MG; Start 07/17/16 at 09:00 Hydralazine HCl (Apresoline) 10 mg Q6H PRN IV SBP>160; Start 07/17/16 at 09:00 Diagnostic Test (Pha) (Accucheck) 1 ea 02 XX ; Start 07/18/16 at 02:00 Lorazepam (Ativan) 1 mg Q8H PRN IV Anxiety; Start 07/17/16 at 09:00 Miscellaneous Information 1 ea NOTE XX ; Start 07/17/16 at 09:30 Glucose (Glutose) 15 gm Q15M PRN PO DECREASED GLUCOSE; Start 07/17/16 at 09:30 Glucose (Glutose) 22.5 gm Q15M PRN PO DECREASED GLUCOSE; Start 07/17/16 at 09: 30 Dextrose (D50w Syringe) 25 ml Q15M PRN IV DECREASED GLUCOSE; Start 07/17/16 at 09:30 Dextrose (D50w Syringe) 50 ml Q15M PRN IV DECREASED GLUCOSE; Start 07/17/16 at 09:30 Glucagon (Glucagen) 1 mg Q15M PRN IM DECREASED GLUCOSE; Start 07/17/16 at 09:30 Glucose (Glutose) 15 gm Q15M PRN BUCCAL DECREASED GLUCOSE; Start 07/17/16 at 09 :30 Pantoprazole (Protonix Iv) 40 mg DAILY@06 IV Last administered on 07/20/16 05: 48; Admin Dose 40 MG; Start 07/18/16 at 06:00 Buspirone HCl (Buspar) 10 mg DAILY PO Last administered on 07/19/16 09:24; Admin Dose 10 MG; Start 07/18/16 at 09:00 Gabapentin (Neurontin) 300 mg TID PO Last administered on 07/19/16 21:13; Admin Dose 300 MG; Start 07/17/16 at 21:00 Cholecalciferol (Vitamin D) 1,000 unit DAILY PO Last administered on 07/19/16 09:23; Admin Dose 1,000 UNIT; Start 07/18/16 at 09:00 Venlafaxine HCl (Effexor Xr) 75 mg DAILY PO Last administered on 07/19/16 09: 23; Admin Dose 75 MG; Start 07/19/16 at 09:00 Meclizine HCl (Antivert) 25 mg TID PRN PO dizziness Last administered on 21:13; Admin Dose 25 MG; Start 07/19/16 at 16:00 Nystatin (Nystatin Susp) 5 ml QID PO ; Start 07/20/16 at 13:00 MARITZA MURGUIA Jul 20, 2016 15:27
--- NOTE | 2016-07-20 15:35 | PN ---
Date/Time of Note Date/Time of Note DATE: 07/20/16 TIME: 15:32 Assessment/Plan VTE Prophylaxis VTE Prophylaxis Intervention: ambulation Lines/Catheters IV C[facility] Type [facility]from [facility] Peripheral IV Urinary Cath still in place: No Assessment/Plan Chief Complaint/Hosp Course Subjective: No events Objective: Vital signs stable Physical examination No pallor or adenopathy Regular, no murmur rub gallop CTAB Bs+, nt, nd, no RRG No edema Assessment and plan: 1. Esophagitis, stable cont PPI 2. Gastritis/ rare H. pylori organisms- Triple antibiotic therapy? 3. Thrush 4. Dm/ metabolic syndrome; cardiac cath? 5. PVCs 6. Asthma 7. Acute pharyngitis/tonsillitis Problems: Exam/Review of Systems Vital Signs Vitals Vital Signs Date Time Temp Pulse Resp B/P Pulse Ox O2 Delivery O2 Flow Rate FiO2 07/20/16 12:29 57 07/20/16 11:55 98.0 18 115/62 97 07/20/16 07:50 Nasal Cannula 2.0 Intake and Output 07/19/16 07/19/16 07/20/16 15:00 23:00 07:00 Intake Total 360 ml 1920 ml 1150 ml Output Total 850 ml Balance 360 ml 1070 ml 1150 ml Results Result Diagram: 07/20/16 0700 07/20/16 0700 Results 24 hrs Laboratory Tests Test 07/19/16 17:33 07/19/16 20:27 07/20/16 07:00 07/20/16 07:33 Bedside Glucose 95 113 91 Anion Gap 16 Basophils # 0.0 Basophils % 0.4 Blood Urea Nitrogen 10 Calcium Level 8.7 Carbon Dioxide Level 24 Chloride Level 103 Creatinine 0.66 Eosinophils # 0.2 Eosinophils % 1.8 Glucose Level 101 Hematocrit 37.0 Hemoglobin 12.7 Lymphocytes # 3.1 H Lymphocytes % 30.6 Mean Corpuscular Hemoglobin 30.1 Mean Corpuscular Hemoglobin Concent 34.2 Mean Corpuscular Volume 87.8 Mean Platelet Volume 7.8 Monocytes # 0.5 Monocytes % 5.2 Neutrophils # 6.2 Neutrophils % 62.0 Nucleated Red Blood Cells # 0.0 Nucleated Red Blood Cells % 0.0 Platelet Count 309 Potassium Level 4.1 Red Blood Count 4.21 Red Cell Distribution Width 13.8 Sodium Level 139 White Blood Count 10.1 Test 07/20/16 12:16 Bedside Glucose 100 Medications Medications Current Medications Sodium Chloride (1/2 NS) 1,000 ml @ 100 mls/hr Q10H IV Last administered on 03:38; Admin Dose 100 MLS/HR; Start 07/17/16 at 07:20 Morphine Sulfate 2 mg 2 mg Q4H PRN IV SEVERE PAIN LEVEL 7-10 Last administered on 07/18/16 11:04; Admin Dose 2 MG; Start 07/17/16 at 07:30 Azithromycin (Zithromax 500mg/ NS (Pmx)) 250 ml @ 250 mls/hr Q24H IVPB Last administered on 07/20/16 09:07; Admin Dose 250 MLS/HR; Start 07/17/16 at 09:00 Acetaminophen (Tylenol Tab) 650 mg Q6H PRN PO PAIN LEVEL 1-3 OR FEVER Last administered on 07/19/16 18:17; Admin Dose 650 MG; Start 07/17/16 at 09:00 Zolpidem Tartrate (Ambien) 5 mg QHS PRN PO INSOMNIA Last administered on 21:13; Admin Dose 5 MG; Start 07/17/16 at 09:00 Hydralazine HCl (Apresoline) 10 mg Q6H PRN IV SBP>160; Start 07/17/16 at 09:00 Diagnostic Test (Pha) (Accucheck) 1 ea 02 XX ; Start 07/18/16 at 02:00 Lorazepam (Ativan) 1 mg Q8H PRN IV Anxiety; Start 07/17/16 at 09:00 Miscellaneous Information 1 ea NOTE XX ; Start 07/17/16 at 09:30 Glucose (Glutose) 15 gm Q15M PRN PO DECREASED GLUCOSE; Start 07/17/16 at 09:30 Glucose (Glutose) 22.5 gm Q15M PRN PO DECREASED GLUCOSE; Start 07/17/16 at 09: 30 Dextrose (D50w Syringe) 25 ml Q15M PRN IV DECREASED GLUCOSE; Start 07/17/16 at 09:30 Dextrose (D50w Syringe) 50 ml Q15M PRN IV DECREASED GLUCOSE; Start 07/17/16 at 09:30 Glucagon (Glucagen) 1 mg Q15M PRN IM DECREASED GLUCOSE; Start 07/17/16 at 09:30 Glucose (Glutose) 15 gm Q15M PRN BUCCAL DECREASED GLUCOSE; Start 07/17/16 at 09 :30 Pantoprazole (Protonix Iv) 40 mg DAILY@06 IV Last administered on 07/20/16 05: 48; Admin Dose 40 MG; Start 07/18/16 at 06:00 Buspirone HCl (Buspar) 10 mg DAILY PO Last administered on 07/19/16 09:24; Admin Dose 10 MG; Start 07/18/16 at 09:00 Gabapentin (Neurontin) 300 mg TID PO Last administered on 07/19/16 21:13; Admin Dose 300 MG; Start 07/17/16 at 21:00 Cholecalciferol (Vitamin D) 1,000 unit DAILY PO Last administered on 07/19/16 09:23; Admin Dose 1,000 UNIT; Start 07/18/16 at 09:00 Venlafaxine HCl (Effexor Xr) 75 mg DAILY PO Last administered on 07/19/16 09: 23; Admin Dose 75 MG; Start 07/19/16 at 09:00 Meclizine HCl (Antivert) 25 mg TID PRN PO dizziness Last administered on 21:13; Admin Dose 25 MG; Start 07/19/16 at 16:00 Nystatin (Nystatin Susp) 5 ml QID PO ; Start 07/20/16 at 13:00 Ondansetron HCl (Zofran Inj) 4 mg Q6H IV ; Start 07/20/16 at 19:30 BELLA MONK MD Jul 20, 2016 15:35
[2016-07-20] MEDS ORDERED: MIDAZOLAM 1 MG/ML 2 ML INJ ONE (16:16)
[2016-07-20] MEDS ORDERED: FENTAnyl 50 MCG/ML VIAL ONE ×2 (16:16→16:36)
[2016-07-20] MEDS ORDERED: HEPARIN 1000 UNITS/ML 10 ML INJ ONE (16:16)
[2016-07-20] MEDS ORDERED: DIPHENHYDRAMINE 50 MG INJ ONE ×2 (16:18→16:26)
[2016-07-20] MEDS ORDERED: LIDOCAINE 1% (MDV) 20 ML INJ ONE (16:36)
[2016-07-20] MEDS ORDERED: IODIXANOL LOCM 100 ML BTL ONE (16:36)
[2016-07-20] MEDS: morphine 2 MG INJ IV PRN (18:02)
[2016-07-20] MEDS: SOD CHLORIDE 0.9% 1,000 ML IV SCH (18:38)
[2016-07-20] MEDS: MECLIZINE 25 MG TAB PO PRN (21:04)
[2016-07-20] MEDS: ONDANSETRON 4 MG INJ IV SCH (21:04)
[2016-07-20] MEDS: ZOLPIDEM 5 MG TAB PO PRN (21:04)
[2016-07-21] VITALS (11 sets, daily range): BP systolic 104–121; BP diastolic 55–75; PULSE 49–69; RESP 17–18
[2016-07-21] MEDS: ONDANSETRON 4 MG INJ IV SCH ×4 (01:37→19:55)
[2016-07-21] MEDS: morphine 2 MG INJ IV PRN ×3 (01:40→13:29)
[2016-07-21] MEDS: ACCUCHECK XX SCH (02:00)
[2016-07-21] MEDS: SOD CHLORIDE 0.9% 1,000 ML IV SCH ×2 (05:47→20:35)
[2016-07-21] MEDS: PANTOPRAZOLE 40 MG INJ IV SCH (05:47)
[2016-07-21] MEDS: MECLIZINE 25 MG TAB PO PRN ×2 (05:47→11:19)
[2016-07-21 07:26] LABS: BASOPHIL # 0.1 10^3/ul (0.0-0.1); BASOPHILS % 0.5 % (0.0-2.0); EOSINOPHILS # 0.2 10^3/ul (0.0-0.5); EOSINOPHILS % 1.5 % (0.0-7.0); HEMATOCRIT 35.6 % (37.0-47.0); HEMOGLOBIN 12.2 g/dl (12.0-16.0); LYMPHOCYTES # 2.9 10^3/ul (0.8-2.9); LYMPHOCYTES % 27.9 % (15.0-51.0); MEAN CORPUSCULAR HEMOGLOBIN 29.9 pg (29.0-33.0); MEAN CORPUSCULAR HGB CONC 34.1 g/dl (32.0-37.0); MEAN CORPUSCULAR VOLUME 87.7 fl (82.0-101.0); MEAN PLATELET VOLUME 7.7 fl (7.4-10.4); MONOCYTE # 0.7 10^3/ul (0.3-0.9); MONOCYTES % 7.2 % (0.0-11.0); NEUTROPHIL # 6.5 10^3/ul (1.6-7.5); NEUTROPHILS % 62.9 % (39.0-77.0); PLATELET COUNT 298 10^3/UL (140-440); RED BLOOD COUNT 4.07 10^6/ul (4.20-5.40); RED CELL DISTRIBUTION WIDTH 13.8 % (11.5-14.5); UNCORRECTED WBC 10.4 10^3/ul (4.8-10.8); WHITE BLOOD COUNT 10.4 10^3/ul (4.8-10.8)
[2016-07-21 07:31] LABS: CONDITION 1
[2016-07-21 07:37] LABS: INR 1.01; PROTIME 13.3 Sec (12.2-14.2)
[2016-07-21 07:52] LABS: CHOL/HDL RATIO 4.2 RATIO; MAGNESIUM 1.7 mg/dl (1.7-2.5); PHOSPHORUS 3.8 mg/dl (2.5-4.9)
[2016-07-21 07:53] LABS: POTASSIUM 3.9 mmol/L (3.5-5.1)
[2016-07-21 07:55] LABS: CREATININE 0.73 mg/dl (0.44-1.00)
[2016-07-21 07:56] LABS: CALCIUM 8.7 mg/dl (8.4-10.2)
[2016-07-21] MEDS: INSULIN ASPART [NOVOLOG] 3 ML PEN SC SCH ×4 (08:00→21:00)
--- NOTE | 2016-07-21 08:06 | OPR ---
DATE OF OPERATION: 07/20/2016 INDICATION FOR THE PROCEDURE: Angina, abnormal cardiac stress test, shortness of breath, and chest pain. The patient presents for left heart catheterization. PROCEDURES: 1. Left heart catheterization. 2. Selective right coronary angiography. 3. Selective left coronary angiography. 4. Selective left ventriculogram. 5. Conscious sedation for 1 hour. 6. Fluoroscopy. 7. Fluoroscopic use in order to guide needle placement to the vessel. 8. O2 sat monitoring and blood pressure monitoring. 9. Defibrillator pad placements anteriorly and posteriorly. 10. Right femoral artery angiography and Angio-Seal deployment. DESCRIPTION OF PROCEDURE: After informed consent was obtained by the patient, the patient was broug ht into the cardiac catheterization laboratory where the patient's right groin was prepped and drape d in usual sterile fashion. Following this, 1% lidocaine was used in order to infiltrate the right groin, a 6-[place] sheath was placed into the right femoral artery, followed by placement of the cath eters into the right coronary artery, left coronary artery, as well as left ventricle. FINDINGS: 1. The patient did not have a left main disease. 2. The LAD was patent with tortuosity; however, there was approximately 10 to 20% stenosis diffusel y. 3. The left circumflex coronary artery was patent and it was codominant. 4. The right coronary artery was patent with no significant vascular blockages. 5. Left ventriculogram was performed and the ejection fraction was approximately 65%. 6. The LVEDP was approximately 15 mmHg. Right femoral artery angiography was performed, and Angio-Seal was deployed with no complications. IMPRESSION: Successful left heart catheterization performed. There is no significant coronary rosalee ry blockages visualized. The patient will be treated medically. Dictated By: YAMILKA HAIR MD, LP/CHRISTIANO Conf#: [id number] DID#: [id number]
--- NOTE | 2016-07-21 08:08 | OPR ---
DATE OF OPERATION: 07/20/2016 INDICATION FOR THE PROCEDURE: Significant shortness of breath with minimal exertion with elevated p ressures on the echocardiogram. The patient now presents for right heart catheterization. PROCEDURES: 1. Right heart catheterization. 2. Central line placement. 3. Central line removal. 4. Chester-Sylwia catheterization performed. 5. Cardiac output monitoring as well as cardiac catheterization with pressures obtained. 6. Pulmonary artery angiography in nonselective fashion. DESCRIPTION OF PROCEDURE: After informed consent was obtained by the patient, the patient was broug ht into the cardiac catheterization laboratory where the patient's right groin was prepped and drape d in the usual sterile fashion. Following this, 1% lidocaine was used in order to infiltrate at the right groin. Following this, a 7-[place] sheath was placed into the right femoral vein with no comp lications. Following this, the patient then had a Chester-Sylwia catheterization performed via the right lung. No complications occurred. FINDINGS: 1. The PA pressure was 35/21 with a mean of 27. 2. The wedge mean was approximately 16 mmHg. 3. the RV pressure was 35/3 with a mean of 9. 4. The right atrial pressure was 12/10. 5. The left ventricular pressure was 157/12. IMPRESSION: Mild pulmonary hypertension present. Dictated By: YAMILKA HAIR MD, LP/CHRISTIANO Conf#: [id number] DID#: [id number]
[2016-07-21] MEDS: BUSPIRONE 10 MG TAB PO SCH (08:16)
[2016-07-21] MEDS: GABAPENTIN 300 MG CAP PO SCH ×3 (08:16→20:34)
[2016-07-21] MEDS: CHOLECALCIFEROL 1,000 UNIT TAB PO SCH (08:16)
[2016-07-21] MEDS: VENLAFAXINE (XR) 75 MG CAP PO SCH (08:16)
[2016-07-21] MEDS: AZITHROMYCIN 500MG/NS (PMX) 250 ML IVPB SCH (08:16)
[2016-07-21] MEDS: NYSTATIN SUSP 5 ML CUP PO SCH ×4 (08:17→20:34)
[2016-07-21] MEDS: metroNIDAZOLE 500 MG TAB PO SCH ×2 (11:19→20:34)
--- NOTE | 2016-07-21 13:13 | CONS ---
Date/Time of Note Date/Time of Note DATE: 07/21/16 TIME: 13:12 Assessment/Plan Assessment/Plan Chief Complaint/Hosp Course SUBJECTIVE: Patient is alert, feels good. She is in no distress, no fevers. ANTIMICROBIALS: Zithromax. PHYSICAL EXAMINATION: GENERAL: Well-nourished, well-developed, middle-aged woman who is alert, in no distress. HEENT: Head atraumatic, normocephalic. Sclerae anicteric. Buccal mucosa pink. NECK: Supple, trachea midline. CHEST: Rise symmetrical. Breath sounds clear. HEART: S1, S2. ABDOMEN: Soft. Bowel tones present. EXTREMITIES: No cyanosis. ASSESSMENT: 1. Pharyngitis and tonsillitis, no evidence of foreign body per EGD. 2. Mild distal esophagitis and gastritis. 3. Diabetes. 4. History of cardiac arrhythmia. 5. Depression. 6. Oral thrush PLAN: The patient remains stable. Ok dc off abx, continue nystatin swishes DW pt Problems: Consultation Date/Type/Reason Admit Date/Time Jul 17, 2016 at 05:00 Initial Consult Date 07/17/16 Type of Consultation: ID Referring Provider: JOSESITO CASTLE TRY ON BASTER Exam/Review of Systems Vital Signs Vitals Vital Signs Date Time Temp Pulse Resp B/P Pulse Ox O2 Delivery O2 Flow Rate FiO2 07/21/16 12:37 2.0 07/21/16 12:14 49 07/21/16 12:13 98.4 18 121/66 95 07/21/16 08:30 Nasal Cannula Intake and Output 07/20/16 07/20/16 07/21/16 15:00 23:00 07:00 Intake Total 600 ml Output Total 1550 ml Balance -1550 ml 600 ml Results Result Diagram: 07/21/16 0646 07/21/16 0646 Results 24 hrs Laboratory Tests Test 07/20/16 18:20 07/20/16 20:16 07/21/16 06:46 07/21/16 08:15 Bedside Glucose 92 82 140 Anion Gap 15 Basophils # 0.1 Basophils % 0.5 Blood Urea Nitrogen 13 Calcium Level 8.7 Carbon Dioxide Level 24 Chloride Level 103 Cholesterol Level 150 Cholesterol/HDL Ratio 4.2 Creatinine 0.73 Eosinophils # 0.2 Eosinophils % 1.5 Glucose Level 116 HDL Cholesterol 35 Hematocrit 35.6 L Hemoglobin 12.2 INR International Normalized Ratio 1.01 LDL Cholesterol, Calculated 80 Lymphocytes # 2.9 Lymphocytes % 27.9 Magnesium Level 1.7 Mean Corpuscular Hemoglobin 29.9 Mean Corpuscular Hemoglobin Concent 34.1 Mean Corpuscular Volume 87.7 Mean Platelet Volume 7.7 Monocytes # 0.7 Monocytes % 7.2 Neutrophils # 6.5 Neutrophils % 62.9 Nucleated Red Blood Cells # 0.0 Nucleated Red Blood Cells % 0.0 Phosphorus Level 3.8 Platelet Count 298 Potassium Level 3.9 Prothrombin Time 13.3 Prothrombin Time Ratio 1.0 Red Blood Count 4.07 L Red Cell Distribution Width 13.8 Sodium Level 138 Triglycerides Level 175 H White Blood Count 10.4 Test 07/21/16 11:21 Bedside Glucose 127 Medications Medications Current Medications Morphine Sulfate (morphine) 2 mg Q4H PRN IV SEVERE PAIN LEVEL 7-10 Last administered on 07/21/16 06:00; Admin Dose 2 MG; Start 07/17/16 at 07:30 Acetaminophen (Tylenol Tab) 650 mg Q6H PRN PO PAIN LEVEL 1-3 OR FEVER Last administered on 07/19/16 18:17; Admin Dose 650 MG; Start 07/17/16 at 09:00 Zolpidem Tartrate (Ambien) 5 mg QHS PRN PO INSOMNIA Last administered on 21:04; Admin Dose 5 MG; Start 07/17/16 at 09:00 Hydralazine HCl (Apresoline) 10 mg Q6H PRN IV SBP>160; Start 07/17/16 at 09:00 Diagnostic Test (Pha) (Accucheck) 1 ea 02 XX ; Start 07/18/16 at 02:00 Lorazepam (Ativan) 1 mg Q8H PRN IV Anxiety; Start 07/17/16 at 09:00 Miscellaneous Information 1 ea NOTE XX ; Start 07/17/16 at 09:30 Glucose (Glutose) 15 gm Q15M PRN PO DECREASED GLUCOSE; Start 07/17/16 at 09:30 Glucose (Glutose) 22.5 gm Q15M PRN PO DECREASED GLUCOSE; Start 07/17/16 at 09: 30 Dextrose (D50w Syringe) 25 ml Q15M PRN IV DECREASED GLUCOSE; Start 07/17/16 at 09:30 Dextrose (D50w Syringe) 50 ml Q15M PRN IV DECREASED GLUCOSE; Start 07/17/16 at 09:30 Glucagon (Glucagen) 1 mg Q15M PRN IM DECREASED GLUCOSE; Start 07/17/16 at 09:30 Glucose (Glutose) 15 gm Q15M PRN BUCCAL DECREASED GLUCOSE; Start 07/17/16 at 09 :30 Buspirone HCl (Buspar) 10 mg DAILY PO Last administered on 07/21/16 08:16; Admin Dose 10 MG; Start 07/18/16 at 09:00 Gabapentin (Neurontin) 300 mg TID PO Last administered on 07/21/16 08:16; Admin Dose 300 MG; Start 07/17/16 at 21:00 Cholecalciferol (Vitamin D) 1,000 unit DAILY PO Last administered on 07/21/16 08:16; Admin Dose 1,000 UNIT; Start 07/18/16 at 09:00 Venlafaxine HCl (Effexor Xr) 75 mg DAILY PO Last administered on 07/21/16 08: 16; Admin Dose 75 MG; Start 07/19/16 at 09:00 Meclizine HCl (Antivert) 25 mg TID PRN PO dizziness Last administered on 11:19; Admin Dose 25 MG; Start 07/19/16 at 16:00 Nystatin (Nystatin Susp) 5 ml QID PO Last administered on 07/21/16 08:17; Admin Dose 5 ML; Start 07/20/16 at 13:00 Ondansetron HCl 4 mg 4 mg Q6H IV Last administered on 07/21/16 08:16; Admin Dose 4 MG; Start 07/20/16 at 19:30 Sodium Chloride (NS) 1,000 ml @ 75 mls/hr [id number] IV Last administered on 07/21 05:47; Admin Dose 75 MLS/HR; Start 07/20/16 at 18:00 Pantoprazole (Protonix Tab) 40 mg BID@06,18 PO ; Start 07/21/16 at 18:00 Metronidazole (Flagyl) 500 mg BID PO Last administered on 07/21/16 11:19; Admin Dose 500 MG; Start 07/21/16 at 11:30 Clarithromycin (Biaxin) 500 mg BID PO ; Start 07/21/16 at 11:30 TIFFANIE RIVAS NP Jul 21, 2016 13:13
[2016-07-21] MEDS: CLARITHROMYCIN 500 MG TAB PO SCH ×2 (13:28→20:34)
[2016-07-21] MEDS ORDERED: NYST1000 PO (15:56)
[2016-07-21] MEDS ORDERED: METR500T14 PO (15:56)
[2016-07-21] MEDS ORDERED: MECL-77 PO (15:56)
[2016-07-21] MEDS ORDERED: CLAR500T39 PO (15:56)
[2016-07-21] MEDS ORDERED: PANT40TA4 PO (15:56)
--- NOTE | 2016-07-21 15:58 | PDOCDIS ---
Discharge Instructions DIAGNOSIS Discharge Diagnosis: 1. Tonsillitis/pharyngitis 2. H. pylori infection 3. Cardiac arrhythmia 4. CONDITION Patient Condition: Stable HOME CARE INSTRUCTIONS: Diet Instructions: Low Fat /Cholesterol FOLLOW UP/APPOINTMENTS Appointments 1. Follow-up with your [facility] specialist 1-2 weeks 2. Follow-up with her panic care provider within 2 weeks MARITZA MURGUIA Jul 21, 2016 15:57
[2016-07-21] MEDS: PANTOPRAZOLE (EC) 40 MG TAB PO SCH (18:18)
[2016-07-21] MEDS: ZOLPIDEM 5 MG TAB PO PRN (23:27)
[2016-07-22] VITALS (8 sets, daily range): BP systolic 112–132; BP diastolic 58–69; PULSE 60–72; RESP 16–18
[2016-07-22] MEDS: ONDANSETRON 4 MG INJ IV SCH ×3 (01:30→13:08)
[2016-07-22] MEDS: ACCUCHECK XX SCH (02:00)
[2016-07-22] MEDS: PANTOPRAZOLE (EC) 40 MG TAB PO SCH (06:33)
[2016-07-22] MEDS: INSULIN ASPART [NOVOLOG] 3 ML PEN SC SCH ×2 (08:00→12:00)
[2016-07-22 08:16] LABS: BASOPHILS % 0.4 % (0.0-2.0); EOSINOPHILS # 0.2 10^3/ul (0.0-0.5); HEMATOCRIT 36.6 % (37.0-47.0); HEMOGLOBIN 12.3 g/dl (12.0-16.0); LYMPHOCYTES # 2.7 10^3/ul (0.8-2.9); LYMPHOCYTES % 29.1 % (15.0-51.0); MEAN CORPUSCULAR HEMOGLOBIN 29.7 pg (29.0-33.0); MEAN CORPUSCULAR HGB CONC 33.7 g/dl (32.0-37.0); MEAN CORPUSCULAR VOLUME 88.2 fl (82.0-101.0); MEAN PLATELET VOLUME 7.7 fl (7.4-10.4); MONOCYTE # 0.6 10^3/ul (0.3-0.9); NEUTROPHIL # 5.9 10^3/ul (1.6-7.5); NEUTROPHILS % 62.5 % (39.0-77.0); PLATELET COUNT 301 10^3/UL (140-440); RED BLOOD COUNT 4.15 10^6/ul (4.20-5.40); RED CELL DISTRIBUTION WIDTH 14.1 % (11.5-14.5); UNCORRECTED WBC 9.4 10^3/ul (4.8-10.8); WHITE BLOOD COUNT 9.4 10^3/ul (4.8-10.8)
[2016-07-22] MEDS: GABAPENTIN 300 MG CAP PO SCH ×2 (08:16→13:07)
[2016-07-22] MEDS: BUSPIRONE 10 MG TAB PO SCH (08:16)
[2016-07-22] MEDS: CLARITHROMYCIN 500 MG TAB PO SCH (08:16)
[2016-07-22] MEDS: VENLAFAXINE (XR) 75 MG CAP PO SCH (08:16)
[2016-07-22] MEDS: CHOLECALCIFEROL 1,000 UNIT TAB PO SCH (08:16)
[2016-07-22 08:19] LABS: CONDITION 1
[2016-07-22 08:36] LABS: POTASSIUM 4.1 mmol/L (3.5-5.1)
[2016-07-22 08:38] LABS: CREATININE 0.76 mg/dl (0.44-1.00)
[2016-07-22 08:39] LABS: CALCIUM 8.9 mg/dl (8.4-10.2)
[2016-07-22] MEDS: NYSTATIN SUSP 5 ML CUP PO SCH ×2 (10:16→13:08)
[2016-07-22] MEDS: metroNIDAZOLE 500 MG TAB PO SCH (10:16)
[2016-07-22] MEDS: SOD CHLORIDE 0.9% 1,000 ML IV SCH (10:16)
--- NOTE | 2016-07-22 13:38 | CONS ---
Date/Time of Note Date/Time of Note DATE: 07/22/16 TIME: 13:37 Assessment/Plan Assessment/Plan Chief Complaint/Hosp Course SUBJECTIVE: Patient is alert, feels good. She is in no distress, no fevers. PHYSICAL EXAMINATION: GENERAL: Well-nourished, well-developed, middle-aged woman who is alert, in no distress. HEENT: Head atraumatic, normocephalic. Sclerae anicteric. Buccal mucosa pink. NECK: Supple, trachea midline. CHEST: Rise symmetrical. Breath sounds clear. HEART: S1, S2. ABDOMEN: Soft. Bowel tones present. EXTREMITIES: No cyanosis. ASSESSMENT: 1. Pharyngitis and tonsillitis, no evidence of foreign body per EGD. 2. Mild distal esophagitis and gastritis. 3. Diabetes. 4. History of cardiac arrhythmia. 5. Depression. 6. Oral thrush PLAN: The patient remains stable. Ok dc off abx DW staff Problems: Consultation Date/Type/Reason Admit Date/Time Jul 17, 2016 at 05:00 Initial Consult Date 07/17/16 Type of Consultation: ID Referring Provider: JOSESITO [employer]ISHER Exam/Review of Systems Vital Signs Vitals Vital Signs Date Time Temp Pulse Resp B/P Pulse Ox O2 Delivery O2 Flow Rate FiO2 07/22/16 12:45 98.8 59 16 112/62 94 07/22/16 04:55 2.0 07/22/16 04:16 Room Air Intake and Output 07/21/16 07/21/16 07/22/16 15:00 23:00 07:00 Intake Total 1450 ml Balance 1450 ml Results Result Diagram: 07/22/16 0715 07/22/16 0715 Results 24 hrs Laboratory Tests Test 07/21/16 17:28 07/21/16 20:58 07/22/16 07:15 07/22/16 08:03 Bedside Glucose 107 125 100 Anion Gap 16 Basophils # 0.0 Basophils % 0.4 Blood Urea Nitrogen 10 Calcium Level 8.9 Carbon Dioxide Level 25 Chloride Level 102 Creatinine 0.76 Eosinophils # 0.2 Eosinophils % 2.0 Glucose Level 97 Hematocrit 36.6 L Hemoglobin 12.3 Lymphocytes # 2.7 Lymphocytes % 29.1 Mean Corpuscular Hemoglobin 29.7 Mean Corpuscular Hemoglobin Concent 33.7 Mean Corpuscular Volume 88.2 Mean Platelet Volume 7.7 Monocytes # 0.6 Monocytes % 6.0 Neutrophils # 5.9 Neutrophils % 62.5 Nucleated Red Blood Cells # 0.0 Nucleated Red Blood Cells % 0.0 Platelet Count 301 Potassium Level 4.1 Red Blood Count 4.15 L Red Cell Distribution Width 14.1 Sodium Level 139 White Blood Count 9.4 Medications Medications Current Medications Morphine Sulfate (morphine) 2 mg Q4H PRN IV SEVERE PAIN LEVEL 7-10 Last administered on 07/21/16 13:29; Admin Dose 2 MG; Start 07/17/16 at 07:30 Acetaminophen (Tylenol Tab) 650 mg Q6H PRN PO PAIN LEVEL 1-3 OR FEVER Last administered on 07/19/16 18:17; Admin Dose 650 MG; Start 07/17/16 at 09:00 Zolpidem Tartrate (Ambien) 5 mg QHS PRN PO INSOMNIA Last administered on 23:27; Admin Dose 5 MG; Start 07/17/16 at 09:00 Hydralazine HCl (Apresoline) 10 mg Q6H PRN IV SBP>160; Start 07/17/16 at 09:00 Diagnostic Test (Pha) (Accucheck) 1 ea 02 XX ; Start 07/18/16 at 02:00 Lorazepam (Ativan) 1 mg Q8H PRN IV Anxiety Last administered on 07/21/16 15:54 ; Admin Dose 1 MG; Start 07/17/16 at 09:00 Miscellaneous Information 1 ea NOTE XX ; Start 07/17/16 at 09:30 Glucose (Glutose) 15 gm Q15M PRN PO DECREASED GLUCOSE; Start 07/17/16 at 09:30 Glucose (Glutose) 22.5 gm Q15M PRN PO DECREASED GLUCOSE; Start 07/17/16 at 09: 30 Dextrose (D50w Syringe) 25 ml Q15M PRN IV DECREASED GLUCOSE; Start 07/17/16 at 09:30 Dextrose (D50w Syringe) 50 ml Q15M PRN IV DECREASED GLUCOSE; Start 07/17/16 at 09:30 Glucagon (Glucagen) 1 mg Q15M PRN IM DECREASED GLUCOSE; Start 07/17/16 at 09:30 Glucose (Glutose) 15 gm Q15M PRN BUCCAL DECREASED GLUCOSE; Start 07/17/16 at 09 :30 Buspirone HCl (Buspar) 10 mg DAILY PO Last administered on 07/22/16 08:16; Admin Dose 10 MG; Start 07/18/16 at 09:00 Gabapentin (Neurontin) 300 mg TID PO Last administered on 07/22/16 13:07; Admin Dose 300 MG; Start 07/17/16 at 21:00 Cholecalciferol (Vitamin D) 1,000 unit DAILY PO Last administered on 07/22/16 08:16; Admin Dose 1,000 UNIT; Start 07/18/16 at 09:00 Venlafaxine HCl (Effexor Xr) 75 mg DAILY PO Last administered on 07/22/16 08: 16; Admin Dose 75 MG; Start 07/19/16 at 09:00 Meclizine HCl (Antivert) 25 mg TID PRN PO dizziness Last administered on 11:19; Admin Dose 25 MG; Start 07/19/16 at 16:00 Nystatin (Nystatin Susp) 5 ml QID PO Last administered on 07/22/16 13:08; Admin Dose 5 ML; Start 07/20/16 at 13:00 Ondansetron HCl 4 mg 4 mg Q6H IV Last administered on 07/22/16 13:08; Admin Dose 4 MG; Start 07/20/16 at 19:30 Sodium Chloride (NS) 1,000 ml @ 75 mls/hr [id number] IV Last administered on 07/22 10:16; Admin Dose 75 MLS/HR; Start 07/20/16 at 18:00 Pantoprazole (Protonix Tab) 40 mg BID@06,18 PO Last administered on 07/22/16 06:33; Admin Dose 40 MG; Start 07/21/16 at 18:00 Metronidazole (Flagyl) 500 mg BID PO Last administered on 07/22/16 10:16; Admin Dose 500 MG; Start 07/21/16 at 11:30 Clarithromycin (Biaxin) 500 mg BID PO Last administered on 07/22/16 08:16; Admin Dose 500 MG; Start 07/21/16 at 11:30 TIFFANIE RIVAS NP Jul 22, 2016 13:38
--- NOTE | 2016-07-22 13:45 | PN ---
Date/Time of Note Date/Time of Note LATE ENTRY DATE: 07/21/16 Assessment/Plan VTE Prophylaxis VTE Prophylaxis Intervention: SCD's Lines/Catheters IV Catheter Type (from Nrsg): Peripheral IV Urinary Cath still in place: No Assessment/Plan Chief Complaint/Hosp Course Assessment and plan 1. Tonsillitis and pharyngitis. Continue antibiotic per ID. Appears to be improving at 2. Type 2 diabetes. A1c of 6.9. Continue on insulin regimen. 3. Cardiac arrhythmia. Patient seen with PVC and bradycardia. Tentative plan for angiogram per wine and spirits clerk. We'll follow-up 4. History of anxiety. Continue anxiolytics as needed 5. History of asthma. Stable at present. We'll provide with bronchodilators as needed 6. Major depression. Continue antidepressant medication 7. H. pylori infection. Triple therapy added DVT prophylaxis: SCDs GERD prophylaxis: PPI and Disposition and plan: Triple therapy added for H. pylori infection. Discharge when cleared by siebel consultant Discussed but of care with Dr. Mariee Problems: Subjective 24 Hr Interval Summary Free Text/Dictation Still with some reports of nausea. No headache reported Exam/Review of Systems Vital Signs Vitals Vital Signs Date Time Temp Pulse Resp B/P Pulse Ox O2 Delivery O2 Flow Rate FiO2 07/22/16 12:45 98.8 59 16 112/62 94 07/22/16 04:55 2.0 07/22/16 04:16 Room Air Intake and Output 07/21/16 07/21/16 07/22/16 15:00 23:00 07:00 Intake Total 1450 ml Balance 1450 ml Exam General: No dizziness at this time. Reports of nausea Eyes: pupils equal round, Anicteric sclera Neck: Supple nontender, no JVD Cardiac: S1, S2 auscultated, regular rhythm and rate Pulmonary: Minimally diminished lung bases GI: Abdomen soft nontender nondistended, bowel sounds active Extremities: No edema bilateral lower extremities Skin: Clean dry and intact Neurologic: Alert to person place and time and situation Results Result Diagram: 07/22/16 0715 07/22/16 0715 Results 24 hrs Laboratory Tests Test 07/21/16 17:28 07/21/16 20:58 07/22/16 07:15 07/22/16 08:03 Bedside Glucose 107 125 100 Anion Gap 16 Basophils # 0.0 Basophils % 0.4 Blood Urea Nitrogen 10 Calcium Level 8.9 Carbon Dioxide Level 25 Chloride Level 102 Creatinine 0.76 Eosinophils # 0.2 Eosinophils % 2.0 Glucose Level 97 Hematocrit 36.6 L Hemoglobin 12.3 Lymphocytes # 2.7 Lymphocytes % 29.1 Mean Corpuscular Hemoglobin 29.7 Mean Corpuscular Hemoglobin Concent 33.7 Mean Corpuscular Volume 88.2 Mean Platelet Volume 7.7 Monocytes # 0.6 Monocytes % 6.0 Neutrophils # 5.9 Neutrophils % 62.5 Nucleated Red Blood Cells # 0.0 Nucleated Red Blood Cells % 0.0 Platelet Count 301 Potassium Level 4.1 Red Blood Count 4.15 L Red Cell Distribution Width 14.1 Sodium Level 139 White Blood Count 9.4 Medications Medications Current Medications Morphine Sulfate (morphine) 2 mg Q4H PRN IV SEVERE PAIN LEVEL 7-10 Last administered on 07/21/16 13:29; Admin Dose 2 MG; Start 07/17/16 at 07:30 Acetaminophen (Tylenol Tab) 650 mg Q6H PRN PO PAIN LEVEL 1-3 OR FEVER Last administered on 07/19/16 18:17; Admin Dose 650 MG; Start 07/17/16 at 09:00 Zolpidem Tartrate (Ambien) 5 mg QHS PRN PO INSOMNIA Last administered on 23:27; Admin Dose 5 MG; Start 07/17/16 at 09:00 Hydralazine HCl (Apresoline) 10 mg Q6H PRN IV SBP>160; Start 07/17/16 at 09:00 Diagnostic Test (Pha) (Accucheck) 1 ea 02 XX ; Start 07/18/16 at 02:00 Lorazepam (Ativan) 1 mg Q8H PRN IV Anxiety Last administered on 07/21/16 15:54 ; Admin Dose 1 MG; Start 07/17/16 at 09:00 Miscellaneous Information 1 ea NOTE XX ; Start 07/17/16 at 09:30 Glucose (Glutose) 15 gm Q15M PRN PO DECREASED GLUCOSE; Start 07/17/16 at 09:30 Glucose (Glutose) 22.5 gm Q15M PRN PO DECREASED GLUCOSE; Start 07/17/16 at 09: 30 Dextrose (D50w Syringe) 25 ml Q15M PRN IV DECREASED GLUCOSE; Start 07/17/16 at 09:30 Dextrose (D50w Syringe) 50 ml Q15M PRN IV DECREASED GLUCOSE; Start 07/17/16 at 09:30 Glucagon (Glucagen) 1 mg Q15M PRN IM DECREASED GLUCOSE; Start 07/17/16 at 09:30 Glucose (Glutose) 15 gm Q15M PRN BUCCAL DECREASED GLUCOSE; Start 07/17/16 at 09 :30 Buspirone HCl (Buspar) 10 mg DAILY PO Last administered on 07/22/16 08:16; Admin Dose 10 MG; Start 07/18/16 at 09:00 Gabapentin (Neurontin) 300 mg TID PO Last administered on 07/22/16 13:07; Admin Dose 300 MG; Start 07/17/16 at 21:00 Cholecalciferol (Vitamin D) 1,000 unit DAILY PO Last administered on 07/22/16 08:16; Admin Dose 1,000 UNIT; Start 07/18/16 at 09:00 Venlafaxine HCl (Effexor Xr) 75 mg DAILY PO Last administered on 07/22/16 08: 16; Admin Dose 75 MG; Start 07/19/16 at 09:00 Meclizine HCl (Antivert) 25 mg TID PRN PO dizziness Last administered on 11:19; Admin Dose 25 MG; Start 07/19/16 at 16:00 Nystatin (Nystatin Susp) 5 ml QID PO Last administered on 07/22/16 13:08; Admin Dose 5 ML; Start 07/20/16 at 13:00 Ondansetron HCl 4 mg 4 mg Q6H IV Last administered on 07/22/16 13:08; Admin Dose 4 MG; Start 07/20/16 at 19:30 Sodium Chloride (NS) 1,000 ml @ 75 mls/hr [id number] IV Last administered on 07/22 10:16; Admin Dose 75 MLS/HR; Start 07/20/16 at 18:00 Pantoprazole (Protonix Tab) 40 mg BID@06,18 PO Last administered on 07/22/16 06:33; Admin Dose 40 MG; Start 07/21/16 at 18:00 Metronidazole (Flagyl) 500 mg BID PO Last administered on 07/22/16 10:16; Admin Dose 500 MG; Start 07/21/16 at 11:30 Clarithromycin (Biaxin) 500 mg BID PO Last administered on 07/22/16t 08:16; Admin Dose 500 MG; Start 07/21/16 at 11:30 MARITZA MURGUIA Jul 22, 2016 13:45
--- NOTE | 2016-08-01 20:21 | DS ---
DATE OF ADMISSION: 07/17/2016 DATE OF DISCHARGE: 07/22/2016 CONSULTANTS: 1. Dr. Alfonzo Merchant. 2. Dr. Onur Tompkins. 3. Dr. Chase Cain 4. Dr. Sherie John. DISCHARGE DIAGNOSES: 1. Tonsillitis and pharyngitis. 2. Type 2 diabetes. 3. History of cardiac arrhythmia. 4. History of anxiety. 5. Asthma. 6. Major depression. 7. Helicobacter pylori infection. HOSPITAL COURSE: This is a 46-year-old female with past medical history of type 2 diabetes, anxiety , depression, asthma, cardiac arrhythmia, who is reportedly scheduled to have left heart catheteriza tion on 07/20/2016 who came to [facility] secondary to dysphagia and throat pain a nd chest fullness. The patient did come to [facility] due to the aforementioned i ssues and did have a chest radiograph that showed no acute intrathoracic findings. She also had a r apid strep A screen done which was negative. Initial troponin was negative as well with troponin at less than 0.01. The patient did have multiple consultants follow her including manufacturing sales representative as well as ID procurement consultant. She was also followed by lath hand as well. Of note, the patient was seen by lath hand for her chest pain and she did have a right heart catheterization with only imp ression showing mild pulmonary hypertension. Her left heart catheterization also showed no signific ant coronary artery blockages that were visualized. The patient was also additionally seen by gastr oenterologist for her reported GI issue. Per report, she was found to have pharyngitis and tonsilli tis. She did have a biopsy done and pathology did show her to have H. pylori for which she was plac ed on appropriate antibiotics. She was otherwise optimized medically. She was noted to have tonsil litis and pharyngitis, which did account for her reported throat fullness and she was placed on appr opriate antibiotics with good response. She was placed on insulin regimen for her type 2 diabetes. She was also provided with bronchodilators as needed for history of asthma and continued on antidep ressants for her depression. During the course of stay, she did improve. Her chest pain did resolv e and she was able to tolerate oral intake. She was continued on insulin for her diabetes. As for her H. pylori infection, she was placed on triple antibiotic therapy and she did tolerate it well. During her course of her stay, she did improve. She was instructed to follow up with primary care haja garcia. Plan of care was discussed with the patient and patient did verbalize her understanding. On the day of discharge, the patient was in stable condition. Discharge physical exam and vital signs are stable. CONDITION: Stable. DISCHARGE PLAN: 1. Diet is low fat, low cholesterol. 2. Patient is to follow up with a lath hand in 1 to 2 weeks. 3. Patient to follow up with primary care provider in 2 weeks. DISCHARGE MEDICATIONS: 1. Clarithromycin 500 mg p.o. b.i.d. for 14 days. 2. Meclizine 25 mg p.o. t.i.d. 3. Flagyl 500 mg p.o. b.i.d. for 14 days. 4. Nystatin 5 mL p.o. q.i.d. for 7 days. 5. Protonix 40 mg p.o. b.i.d. for 30 days. 6. Buspirone 10 mg p.o. daily. 7. Cetirizine mg p.o. every day. 8. Diltiazem 120 mg p.o. every day. 9. Flonase allergy relief 9.9 mL spray daily in both nostrils. 10. Neurontin 300 mg p.o. t.i.d. 11. Ibuprofen 300 mg p.o. t.i.d. 12. Metformin 500 mg p.o. at bedtime. 13. Venlafaxine 75 mg p.o. every day. DISCHARGE PROCESS TIME: 40 minutes. Discussed plan of care with Dr. Mariee. Dictated By: MARITZA MURGUIA NP for GARY RUSSELL/CHRISTIANO Conf#: [id number] DID#: [id number]
== END 2016-07-22 13:56 | disposition home or self-care (01) | DRG 153 ==
LOC: MS4 05:00
PROVIDERS: ADMIT Internal Medicine; ATTEND Internal Medicine
PROC: 0DB68ZX Excision of Stomach, Via Natural or Artificial Opening Endoscopic, Diagnostic (ICD-10-PCS; principal; 2016-07-17 12:00)
PROC: B2111ZZ Fluoroscopy of Multiple Coronary Arteries using Low Osmolar Contrast (ICD-10-PCS; 2016-07-20)
PROC: B2151ZZ Fluoroscopy of Left Heart using Low Osmolar Contrast (ICD-10-PCS; 2016-07-20)
PROC: 4A023N8 Measurement of Cardiac Sampling and Pressure, Bilateral, Percutaneous Approach (ICD-10-PCS; 2016-07-20 14:30)
DX: J02.9 Acute pharyngitis, unspecified (principal); B37.0 Candidal stomatitis; R13.10 Dysphagia, unspecified; E55.9 Vitamin D deficiency, unspecified; E11.9 Type 2 diabetes mellitus without complications; R00.1 Bradycardia, unspecified; J03.90 Acute tonsillitis, unspecified; I49.3 Ventricular premature depolarization; F41.9 Anxiety disorder, unspecified; J45.909 Unspecified asthma, uncomplicated; F32.9 Major depressive disorder, single episode, unspecified; R07.89 Other chest pain; K20.9 Esophagitis, unspecified; K29.70 Gastritis, unspecified, without bleeding; R42 Dizziness and giddiness; B96.81 Helicobacter pylori [H. pylori] as the cause of diseases classified elsewhere; Z79.4 Long term (current) use of insulin; Z88.0 Allergy status to penicillin
CPT/HCPCS: 70490; 71250; 80048; 80053; 80061; 80307; 81001; 81003; 82652; 82962; 83036; 83735; 84100; 84439; 84443; 84484; 84703; 85025; 85610; 85730; 87070; 87081; 88305; 88312; 93460; 97161; C1760; C1769; C1887; C1894; C9113; J0456; J1200; J1644; J1815; J2060; J2250; J2270; J2405; J3010; J3475; J7030; Q9967

== ENCOUNTER 2017-03-10 12:39 | Day surgery (SDC) | payer OTHER ==
[~2017-03-10] VITALS: Ht 163.8 cm; Wt 81.9 kg
[~2017-03-10 12:39] MED LIST: BUSP10TA2 PO; CETI-240 PO; CETI5SOL PO; CLAR500T39 PO; DILT120C77 PO; FLUT9.9S NASAL; GABA300S PO; IBUP-1542 PO; MECL-77 PO; METF-730 PO; METR500T14 PO; NYST1000 PO; PANT40TA4 PO; SOD CHLORIDE 0.9% 1,000 ML IV SCH; VANCOMYCIN 1 GM in NS 250 ML IVPB SCH; VENL75CA89 PO
[2017-03-10] MEDS ORDERED: BACL10TA PO (13:08)
[2017-03-10] MEDS ORDERED: CELE200C PO (13:09)
[2017-03-10] MEDS ORDERED: SITA100T8 PO (13:11)
[2017-03-10] MEDS ORDERED: GLIP-95 PO (13:15)
[2017-03-10] MEDS ORDERED: METF1000 PO (13:16)
[2017-03-10] MEDS ORDERED: TRAZ50TA18 PO (13:17)
[2017-03-10 13:21] LABS: BASOPHIL # 0.1 10^3/ul (0.0-0.1); BASOPHILS % 0.4 % (0.0-2.0); EOSINOPHILS # 0.3 10^3/ul (0.0-0.5); EOSINOPHILS % 2.2 % (0.0-7.0); HEMATOCRIT 40.1 % (37.0-47.0); HEMOGLOBIN 13.4 g/dl (12.0-16.0); LYMPHOCYTES # 3.1 10^3/ul (0.8-2.9); LYMPHOCYTES % 26.6 % (15.0-51.0); MEAN CORPUSCULAR HEMOGLOBIN 29.3 pg (29.0-33.0); MEAN CORPUSCULAR HGB CONC 33.4 g/dl (32.0-37.0); MEAN CORPUSCULAR VOLUME 87.6 fl (82.0-101.0); MEAN PLATELET VOLUME 9.3 fl (7.4-10.4); MONOCYTE # 0.5 10^3/ul (0.3-0.9); MONOCYTES % 4.4 % (0.0-11.0); NEUTROPHIL # 7.7 10^3/ul (1.6-7.5); NEUTROPHILS % 65.9 % (39.0-77.0); PLATELET COUNT 389 10^3/UL (140-415); RED BLOOD COUNT 4.58 10^6/ul (4.20-5.40); RED CELL DISTRIBUTION WIDTH 14.3 % (11.5-14.5); WHITE BLOOD COUNT 11.7 10^3/ul (4.8-10.8)
[2017-03-10 13:39] LABS: INR 0.96; PARTIAL THROMBOPLASTIN TIME 30.8 Sec (25.0-35.0); PROTIME 12.8 Sec (12.2-14.2)
[2017-03-10 13:43] LABS: ALBUMIN 4.7 g/dl (3.3-4.9); ALBUMIN/GLOBULIN RATIO 1.2; BILIRUBIN,INDIRECT 0.8 mg/dl (0-1.1); BILIRUBIN,TOTAL 0.8 mg/dl (0.2-1.3); TOTAL PROTEIN 8.6 g/dl (6.1-8.1)
[2017-03-10 13:44] LABS: CALCIUM 9.3 mg/dl (8.4-10.2); CREATININE 0.68 mg/dl (0.44-1.00); POTASSIUM 3.8 mmol/L (3.5-5.1)
[2017-03-10 13:45] VITALS: BP 105/68; PULSE 70; RESP 16; Ht 163.8 cm; Wt 81.9 kg
--- NOTE | 2017-03-17 13:23 | RADRPT ---
Vent Rate: 67 bpm RR Interval: 0 msec [place] Interval: 132 msec QRS Duration: 92 msec QT Interval: 442 msec QTC Interval: 467 msec P-R-T [place]: 41 - 37 - 55 degrees Sinus rhythm with frequent premature ventricular complexes Prolonged QT Abnormal ECG Electronically Signed By: Andre Alas [id number]
== END 2017-03-10 16:15 | disposition home or self-care (01) ==
LOC: SDS 12:39
PROVIDERS: ATTEND Surgery Surgical Oncology
DX: N63.10 Unspecified lump in the right breast, unspecified quadrant (principal); Z53.8 Procedure and treatment not carried out for other reasons; R94.31 Abnormal electrocardiogram [ECG] [EKG]; E11.9 Type 2 diabetes mellitus without complications; I10 Essential (primary) hypertension
CPT/HCPCS: 80053; 82962; 85025; 85610; 85730; 93005

== ENCOUNTER 2017-07-15 16:11 | Observation (INO) | END 2017-07-17 14:45 | disposition home or self-care (01) ==

== ENCOUNTER 2018-02-07 13:17 | Emergency (ER) | END 2018-02-07 16:16 | disposition home or self-care (01) ==

== ENCOUNTER 2018-04-11 23:51 | Inpatient (IN) | END 2018-04-13 13:49 | disposition home or self-care (01) | DRG 607 ==